=== PATIENT | female | born 2000 | race Caucasian/White ===

== ENCOUNTER 2020-01-18 10:48 | Outpatient (REF) | payer MEDICAID, SELFPAY | END 2020-01-18 10:49 | disposition home or self-care (01) | LOC: HO.LAB 10:48 | PROVIDERS: Visit Provider Internal Medicine | DX: Z20.828 Contact with and (suspected) exposure to other viral communicable diseases (principal) | CPT/HCPCS: C9803; U0003 ==

== ENCOUNTER 2020-01-30 15:35 | Outpatient (REF) | payer MEDICAID, SELFPAY | END 2020-01-30 15:36 | disposition home or self-care (01) | LOC: HO.LAB 15:35 | PROVIDERS: Visit Provider Internal Medicine | DX: Z20.828 Contact with and (suspected) exposure to other viral communicable diseases (principal) | CPT/HCPCS: C9803; U0003 ==

== ENCOUNTER 2021-11-06 11:01 | Emergency (ER) | payer MEDICAID, SELFPAY ==
--- NOTE | ~2021-11-06 | CT_ITS ---
EXAMINATION: CT abdomen pelvis w con CLINICAL INFORMATION: Reason for Exam pt c let upper/lower quadrant abd pain COMPARISON: No prior CT available for comparison. TECHNIQUE: Multidetector volumetric imaging was performed from the superior aspect of the liver through the pubic symphysis , approximately 85 mL of Omnipaque 350 injected Sagittal and coronal reformatted images were obtained on the technologist's workstation. This CT examination was performed using dose optimization techniques as appropriate, variously including the following: *Automated exposure control *Adjustment of mA and/or kV according to patient size (this includes techniques or standardized protocols for targeted exams where dose is matched to indication/reason for exam; i.e. extremities or head) *Use of iterative reconstruction technique DLP: 554 mGy-cm FINDINGS: LOWER THORAX: Included lung bases are clear. HEPATOBILIARY: No focal hepatic lesions. No biliary ductal dilatation. GALLBLADDER: Has been removed. SPLEEN: Spleen is normal in size. PANCREAS: No focal mass or ductal dilatation. STOMACH AND GASTROINTESTINAL TRACT: Stomach is grossly unremarkable. There is no bowel distention or thickening. No CT evidence of appendicitis. ADRENALS: No adrenal nodules. KIDNEYS/URETERS: No hydronephrosis, stones or solid mass lesions. URINARY BLADDER: Partially decompressed. PELVIC VISCERA: Uterus and ovaries are prominent, normal for patient's young age. PERITONEUM: No free air or fluid. LYMPH NODES: No lymphadenopathy. VASCULAR:Abdominal aorta normal in size, no aneurysm found. BONES, ABDOMINAL WALL AND SOFT TISSUES: Age-appropriate changes of the spine and skeletal system, no destructive osteolytic or osteosclerotic bone lesion found CT/CT abdomen pelvis w con IMPRESSION: *No CT findings to explain patient's pain symptoms. No kidney stone or hydronephrosis. No diverticulitis. Gallbladder been removed. *Uterus and ovaries are prominent, normal for patient's young age.
[2021-11-06 11:03] VITALS: BP 113/52; PULSE 68; RESP 16; TEMP 35; O2SAT 99; BMI 31.8
--- NOTE | 2021-11-06 11:34 | ED_ITS ---
HPI - URI/Sore Throat General Chief Complaint: Upper Respiratory Symptoms Stated Complaint: Sore throat/Stuffy nose Time Seen by Provider: 11/06/21 11:24 Source: patient Mode of arrival: ambulatory Limitations: no limitations History of Present Illness HPI Narrative: 21-year-old female with a past medical history of cholelithiasis status post cholecystectomy in 2021 presenting to the ER with complaints of chills, fatigue, malaise, ear pain, nasal congestion/rhinorrhea, sore throat, dry cough with abdominal pain and dysuria. Denies recent travel or sick contacts, measured fevers, dizziness, headaches, neck pain/stiffness, trouble swallowing or breathing, loss of taste or smell, recent oral intercourse, thoughts of STDs, nausea/vomiting, sputum production, back pain, hematuria, abnormal vaginal discharge, rashes or lesions, lower extremity edema or calf tenderness, others with similar symptoms or any other symptoms complaints or concerns at this time. MD elicited complaint: sore throat, rhinorrhea and nasal congestion Onset (ago): week(s) (1) Consistency: constant Severity: moderate Description of mucous: clear and yellow Able to tolerate fluids by mouth: Yes Exacerbating factors: swallowing Relieving factors: nothing Associated symptoms: chills, myalgias, rhinorrhea, nasal congestion, sore throat, cough, abdominal pain and dysuria Treatments prior to arrival: none Related Data Previous Rx's Medication Instructions Recorded cefuroxime axetil 250 mg tablet 250 mg PO BID Upper respiratory 11/06/21 infection/UTI 7 days #14 tabs Allergies Allergy/AdvReac Type Severity Reaction Status Date / Time amoxicillin [AMOXICILLIN] Allergy Unknown RASH Unverified 11/28/19 17:23 vancomycin [VANCOMYCIN] Allergy Unknown HIVES, Unverified 11/28/19 17:23 itchy and swollen Review of Systems Review of Systems: Constitutional : + chills/fatigue/malaise, No Fever, No Night Sweats, No Weight loss ENT/Mouth : + sore throat/nasal congestion/rhinorrhea/ear pain, No Hearing loss, No Sinus Pain, No Hoarseness, No Swallowing Difficulty Eyes: No Eye Pain, No Swelling, No Redness, No Foreign Body, No Discharge, No Vision Changes Cardiovascular : No Chest Pain, No SOB, No Dyspnea on Exertion, No Orthopnea, No Edema, No Palpitations Respiratory : + Cough, No Sputum, No Wheezing, No Smoke Exposure, No Dyspnea Gastrointestinal : No Nausea, No Vomiting, No Diarrhea, No Constipation, + abdominal Pain, No Hematochezia, No Melena Genitourinary : no irregular bleeding, + Dysuria, No Urinary Frequency, No Hematuria, No Urinary Incontinence, No Urgency, No Flank Pain, No Urinary Flow Changes, No Hesitancy Musculoskeletal : No joint pain, + Myalgias, No Joint Swelling Skin : No Skin Lesions, No rash Neuro : No Weakness, No Numbness, No Paresthesias, No Loss of Consciousness, No Dizziness, No Headache Psych : No Anxiety/Panic, No Depression, No SI/HI/AH/VH, No Social Issues, Heme/Lymph: No Bruising, No Bleeding,No Lymphadenopathy Endocrine : No Polyuria, No Polydipsia, No Temperature Intolerance Yes all other systems are reviewed and are negative [facility] Past Medical History Attestation statement: The following information was validated with the patient. Source: old records reviewed and nursing notes reviewed Social History Social History Advance Directives: No Advance Directives Information Provided: Yes Advance Directives on File: No Physical Exam Vital Signs: Vital Signs: Last Vital Signs Temp 95.0 F L 11/06/21 11:03 Pulse 68 11/06/21 11:03 Resp 16 11/06/21 11:03 BP 113/52 L 11/06/21 11:03 Pulse Ox 99 11/06/21 11:03 O2 Del Method 11/06/21 11:03 BMI result Body Mass Index 31.8 vital signs have been reviewed as normal and appeared to be correct. Blood pressure normal. Heart rate normal. Respiration rate normal. Temperature normal. Oxygen saturation normal. Appearance: Alert. Oriented X3. No acute distress. Head: Normal external exam. Normocephalic. Atraumatic. Eyes: PERRLA. EOMI. Conjunctiva and sclera normal. Eyelids normal. ENT: EAC normal. TM's Normal. Pharynx normal. Uvula midline. Moist mucous membranes. No lesions/ulcerations or masses noted on the tongue. Normal voice. No trismus noted. No drooling noted. No muffled voice noted. Neck: Normal inspection. Neck supple. FROM. No adenopathy. Thyroid Normal. No tracheal deviation noted. No crepitus is noted. No meningeal signs. No neck mass noted. No signs of trauma noted. CVS: Normal heart rate and rhythm. Heart sound normal. Pulses normal throughout. No murmurs/rales/gallops. Respiratory: No respiratory distress. Painless inspiration. Breath sounds normal. No wheezes/rales/rhonchi noted. Chest nontender. No crepitus is noted. No signs of trauma noted. No accessory muscle usage noted or decreased air mo vement noted. No signs of trauma. Abdomen: Soft and mild tenderness to left upper quadrant/left lower quadrant with guarding. Nondistended. No rigidity. Bowel sounds normal in all 4 quadrants. No distention noted. No organomegaly noted. No visible injury noted. No rebound tenderness. Negative Rovsing sign. Negative obturator's sign. Negative psoas sign. Negative Gaitan sign. Back: No CVA tenderness. Full range of motion noted. Nontender. No signs of trauma. Patient neuro intact bilaterally and distally on all 4 extremities. Patient's reflexes intact bilaterally and distally on all 4 extremities. No rashes/lesion/induration/fluctuance or signs of infection noted. Skin: Skin warm and dry. Normal skin color. Normal skin turgor. No rashes/lesions/lacerations noted. Extremities: Extremities exhibit normal range of motion and nontender. Neuro: Oriented X 3. No motor deficit. No sensory deficit. Reflexes normal. Normal steady gait. No focal neuro deficits noted. CN's II-XII intact bilaterally? Vascular: + radial pulses/+ 2 distal pedal pulses/+2 dorsalis pedis b/l. Normal cap refill. No cyanosis noted to upper extremity nails and lower extremity toes nails. Course Course Course Narrative: 11am - 21-year-old female with a past medical history of cholelithiasis status post cholecystectomy in 2021 presenting to the ER with complaints of chills, fatigue, malaise, ear pain, nasal congestion/rhinorrhea, sore throat, dry cough with abdominal pain and dysuria. Plan: Labs, COVID swab, strep swab, assess for mono, UA, UHCG, gonorrhea chlamydia urine, CT scan abdomen pelvis with IV contrast. Provide some fluids and re-evaluate. Reevaluation(s) Reevaluation #1: - labs return patient with mild anemia with an H&H of 10.6/32.1 this is similar compared to prior. Otherwise all other labs are within normal limits. Serum quant negative for . Patient positive for leukocytes therefore will treat for UTI despite negative nitrates due to patient reporting dysuria. Patient negative for mono/influenza/COVID. - awaiting CT scan abdomen pelvis will re-evaluate. Time: 12:56 Reevaluation #2: - CT scan abdomen pelvis negative for any acute processes. Therefore at this time will DC home antibiotics for UTI instructions return if any new or worsening symptoms to follow up with primary care provider. Patient understands agrees with this plan. Time: 14:[address] [facility] - URI/Sore Throat Medical Records Attestation: I reviewed the patient's medical records. Lab Data Attestation: I reviewed the patient's lab results. Result diagrams: 11/06/21 12:21 11/06/21 12:21 Labs: Lab Results 11/06/21 11/06/21 11/06/21 Range/Units 11:12 11:12 12:12 WBC (4.8-10.8) X10*3/uL RBC (4.20-5.50) X10*6/uL Hgb (12.0-16.0) g/dl Hct (37.0-47.0) % MCV (80.0-98.0) fL MCH (27.0-33.0) pg MCHC (31.0-35.0) g/dl RDW (11.0-16.0) % Plt Count (160-400) X10*3/uL MPV (9.4-12.3) fL Immature Gran % (Auto) (0.0-0.4) % Neut % (Auto) (45-73) % Lymph % (Auto) (20-40) % [place] % (Auto) (2-11) % Eos % (Auto) (0-4) % Baso % (Auto) (0-2) % Lymph # (Auto) (1.2-4.9) X10*3/uL [place] # (Auto) (0.1-1.2) X10*3/uL Eos # (Auto) (0.0-0.4) X10*3/uL Baso # (Auto) (0.0-0.2) X10*3/uL Abs Immat Gran (auto) (0.00-0.03) X10*3/uL Absolute Neuts (auto) (2.0-8.3) x10*3/uL Absolute Nucleated RBC (0.0-0.012) X10*3/uL Nucleated RBC % (auto) (0.0-0.2) /100WBC PT (10.0-13.1) SEC INR (0.9-1.1) Sodium (135-145) mmol/L Potassium (3.3-5.1) mmol/L Chloride (96-108) mmol/L Carbon Dioxide (22-29) mmol/L Anion Gap (12-20) BUN (9-16) mg/dL Creatinine (0.5-1.4) mg/dL Estim Creat Clear Calc Estimated GFR Random Glucose (60-115) mg/dL Calcium (8.4-10.2) mg/dL Magnesium (1.6-2.6) mg/dL Total Bilirubin (0.0-1.0) mg/dL AST (5-31) U/L ALT (0-31) U/L Alkaline Phosphatase (39-117) U/L Lactate Dehydrogenase (122-220) U/L Total Protein (6.5-8.0) g/dL Albumin (3.5-5.0) g/dL Amylase (28-100) U/L Lipase (8-78) U/L Beta HCG, Quant mIU/mL Urine Color Urine Appearance Urine pH (5.0-8.0) Ur Specific [place] (1.005-1.025) Urine Protein (Neg-Trace) mg/dL Urine Glucose (UA) (Negative) mg/dL Urine Ketones (Negative) mg/dL Urine Blood (Negative) Urine Nitrite (Negative) Ur Leukocyte Esterase (Negative) Urine RBC (0-2) /HPF Urine WBC (0-5) /HPF Ur Squamous Epith Cells (0-2) /HPF Urine Bacteria (None Seen) Hyaline Casts (0-2) /LPF COVID-19 (ROSARIO) Negative (Negative) COVID-19 Clin Com See Note Monoscreen (Negative) Influenza Type A (HOMA) Negative (Negative) Influenza Type B (HOMA) Negative (Negative) Influenza A & B Note See Note S. pyogenes GrpA HOMA Negative (Negative) 11/06/21 11/06/21 11/06/21 Range/Units 12:21 12:21 12:21 WBC 7.9 (4.8-10.8) X10*3/uL RBC 3.90 L (4.20-5.50) X10*6/uL Hgb 10.6 L (12.0-16.0) g/dl Hct 32.1 L (37.0-47.0) % MCV 82.3 (80.0-98.0) fL MCH 27.2 (27.0-33.0) pg MCHC 33.0 (31.0-35.0) g/dl RDW 13.5 (11.0-16.0) % Plt Count 347 (160-400) X10*3/uL MPV 9.1 L (9.4-12.3) fL Immature Gran % (Auto) 0.4 (0.0-0.4) % Neut % (Auto) 67.4 (45-73) % Lymph % (Auto) 23.1 (20-40) % [place] % (Auto) 7.3 (2-11) % Eos % (Auto) 1.3 (0-4) % Baso % (Auto) 0.5 (0-2) % Lymph # (Auto) 1.8 (1.2-4.9) X10*3/uL [place] # (Auto) 0.6 (0.1-1.2) X10*3/uL Eos # (Auto) 0.1 (0.0-0.4) X10*3/uL Baso # (Auto) 0.0 (0.0-0.2) X10*3/uL Abs Immat Gran (auto) 0.03 (0.00-0.03) X10*3/uL Absolute Neuts (auto) 5.4 (2.0-8.3) x10*3/uL Absolute Nucleated RBC 0.000 (0.0-0.012) X10*3/uL Nucleated RBC % (auto) 0.0 (0.0-0.2) /100WBC PT 11.4 (10.0-13.1) SEC INR 1.0 (0.9-1.1) Sodium 143 (135-145) mmol/L Potassium 4.1 (3.3-5.1) mmol/L Chloride 107 (96-108) mmol/L Carbon Dioxide 28 (22-29) mmol/L Anion Gap 12 (12-20) BUN 12 (9-16) mg/dL Creatinine 0.69 (0.5-1.4) mg/dL Estim Creat Clear Calc 125.5 Estimated GFR > 60 Random Glucose 100 (60-115) mg/dL Calcium 8.5 (8.4-10.2) mg/dL Magnesium 2.1 (1.6-2.6) mg/dL Total Bilirubin 0.2 (0.0-1.0) mg/dL AST 21 (5-31) U/L ALT 25 (0-31) U/L Alkaline Phosphatase 63 (39-117) U/L Lactate Dehydrogenase 171 (122-220) U/L Total Protein 6.8 (6.5-8.0) g/dL Albumin 3.8 (3.5-5.0) g/dL Amylase 30 (28-100) U/L Lipase 22 (8-78) U/L Beta HCG, Quant < 2 mIU/mL Urine Color Urine Appearance Urine pH (5.0-8.0) Ur Specific [place] (1.005-1.025) Urine Protein (Neg-Trace) mg/dL Urine Glucose (UA) (Negative) mg/dL Urine Ketones (Negative) mg/dL Urine Blood (Negative) Urine Nitrite (Negative) Ur Leukocyte Esterase (Negative) Urine RBC (0-2) /HPF Urine WBC (0-5) /HPF Ur Squamous Epith Cells (0-2) /HPF Urine Bacteria (None Seen) Hyaline Casts (0-2) /LPF COVID-19 ([facility]ARIO) (Negative) COVID-19 Clin Com Monoscreen (Negative) Influenza Type A (HOMA) (Negative) Influenza Type B (HOMA) (Negative) Influenza A & B Note S. pyogenes GrpA HOMA (Negative) 11/06/21 11/06/21 Range/Units 12:21 12:35 WBC (4.8-10.8) X10*3/uL RBC (4.20-5.50) X10*6/uL Hgb (12.0-16.0) g/dl Hct (37.0-47.0) % MCV (80.0-98.0) fL MCH (27.0-33.0) pg MCHC (31.0-35.0) g/dl RDW (11.0-16.0) % Plt Count (160-400) X10*3/uL MPV (9.4-12.3) fL Immature Gran % (Auto) (0.0-0.4) % Neut % (Auto) (45-73) % Lymph % (Auto) (20-40) % [place] % (Auto) (2-11) % Eos % (Auto) (0-4) % Baso % (Auto) (0-2) % Lymph # (Auto) (1.2-4.9) X10*3/uL [place] # (Auto) (0.1-1.2) X10*3/uL Eos # (Auto) (0.0-0.4) X10*3/uL Baso # (Auto) (0.0-0.2) X10*3/uL Abs Immat Gran (auto) (0.00-0.03) X10*3/uL Absolute Neuts (auto) (2.0-8.3) x10*3/uL Absolute Nucleated RBC (0.0-0.012) X10*3/uL Nucleated RBC % (auto) (0.0-0.2) /100WBC PT (10.0-13.1) SEC INR (0.9-1.1) Sodium (135-145) mmol/L Potassium (3.3-5.1) mmol/L Chloride (96-108) mmol/L Carbon Dioxide (22-29) mmol/L Anion Gap (12-20) BUN (9-16) mg/dL Creatinine (0.5-1.4) mg/dL Estim Creat Clear Calc Estimated GFR Random Glucose (60-115) mg/dL Calcium (8.4-10.2) mg/dL Magnesium (1.6-2.6) mg/dL Total Bilirubin (0.0-1.0) mg/dL AST (5-31) U/L ALT (0-31) U/L Alkaline Phosphatase (39-117) U/L Lactate Dehydrogenase (122-220) U/L Total Protein (6.5-8.0) g/dL Albumin (3.5-5.0) g/dL Amylase (28-100) U/L Lipase (8-78) U/L Beta HCG, Quant mIU/mL Urine Color Yellow Urine Appearance Clear Urine pH 6.5 (5.0-8.0) Ur Specific [place] 1.020 (1.005-1.025) Urine Protein Negative (Neg-Trace) mg/dL Urine Glucose (UA) Negative (Negative) mg/dL Urine Ketones Negative (Negative) mg/dL Urine Blood Negative (Negative) Urine Nitrite Negative (Negative) Ur Leukocyte Esterase Small (1+) H (Negative) Urine RBC 0-2 (0-2) /HPF Urine WBC 0-5 (0-5) /HPF Ur Squamous Epith Cells 0-2 (0-2) /HPF Urine Bacteria None Seen (None Seen) Hyaline Casts 0-2 (0-2) /LPF COVID-19 (ROSARIO) (Negative) COVID-19 Clin Com Monoscreen Negative (Negative) Influenza Type A (HOMA) (Negative) Influenza Type B (HOMA) (Negative) Influenza A & B Note S. pyogenes GrpA HOMA (Negative) Imaging Data CT scan abdomen pelvis with IV contrast: Attestation: I personally reviewed and interpreted this imaging study as follows: Radiologist's impression: FINDINGS: LOWER THORAX: Included lung bases are clear. HEPATOBILIARY: No focal hepatic lesions. No biliary ductal dilatation. GALLBLADDER: Has been removed. SPLEEN: Spleen is normal in size. PANCREAS: No focal mass or ductal dilatation. STOMACH AND GASTROINTESTINAL TRACT: Stomach is grossly unremarkable. There is no bowel distention or thickening. No CT evidence of appendicitis. ADRENALS: No adrenal nodules. KIDNEYS/URETERS: No hydronephrosis, stones or solid mass lesions. URINARY BLADDER: Partially decompressed. PELVIC VISCERA: Uterus and ovaries are prominent, normal for patient's young age. PERITONEUM: No free air or fluid. LYMPH NODES: No lymphadenopathy. VASCULAR:Abdominal aorta normal in size, no aneurysm found. BONES, ABDOMINAL WALL AND SOFT TISSUES: Age-appropriate changes of the spine and skeletal system, no destructive osteolytic or osteosclerotic bone lesion found CT/CT abdomen pelvis w con IMPRESSION: *No CT findings to explain patient's pain symptoms. No kidney stone or hydronephrosis. No diverticulitis. Gallbladder been removed. ? *Uterus and ovaries are prominent, normal for patient's young age. Discharge Plan Discharge Clinical Impression: Upper respiratory infection, UTI (urinary tract infection), Abdominal pain, Anemia Patient Disposition: Home, Self-Care Instructions: Urinary Tract Infection in Women (ED), Upper Respiratory Infection (ED), Abdominal Pain (ED), Anemia (ED) Additional Instructions: You have pending lab results if any are positive you will be contacted within 5- 7 days or you can find them on the patient portal before we call you most the time. Return if any new or worsening symptoms and follow-up with her primary care provider. Prescriptions: New cefuroxime axetil 250 mg tablet 250 mg PO BID 7 Days Qty: 14 0RF Referrals: Pamela Handley NP [Primary Care Provider] - 2 days Stand Alone Forms: Work/School Release Print Language: Romanian
[2021-11-06 11:48] LABS: COVID-19 Test Negative (Negative); IDNOW Serial# 16C4AD1C
[2021-11-06 11:49] LABS: Influenza A Negative (Negative); Influenza B2 Negative (Negative)
[2021-11-06 12:26] LABS: MANUAL DIFF FLAG NO
[2021-11-06 12:27] LABS: Basophils Percent Auto 0.5 % (0-2); Eosinophils Absolute Auto 0.1 X10*3/uL (0.0-0.4); Eosinophils Percent Auto 1.3 % (0-4); Hematocrit 32.1 % (37.0-47.0); Hemoglobin 10.6 g/dl (12.0-16.0); Imm Gran Abs Auto 0.03 X10*3/uL (0.00-0.03); Imm Gran Pct Auto 0.4 % (0.0-0.4); Lymphocytes Absolute Auto 1.8 X10*3/uL (1.2-4.9); Lymphocytes Percent Auto 23.1 % (20-40); Mean Corpuscular Hemoglobin 27.2 pg (27.0-33.0); Mean Corpuscular Volume 82.3 fL (80.0-98.0); Mean Platelet Volume 9.1 fL (9.4-12.3); Monocytes Absolute Auto 0.6 X10*3/uL (0.1-1.2); Monocytes Percent Auto 7.3 % (2-11); Neutrophils Absolute Auto 5.4 x10*3/uL (2.0-8.3); Neutrophils Percent Auto 67.4 % (45-73); Platelet Count 347 X10*3/uL (160-400); Red Cell Distribution Width 13.5 % (11.0-16.0); White Blood Count 7.9 X10*3/uL (4.8-10.8)
[2021-11-06 12:33] LABS: Prothrombin Time 11.4 SEC (10.0-13.1)
[2021-11-06] MEDS: 0.9 % Sodium Chloride 1,000 ML 999 ML IVCONT (12:34)
[2021-11-06 12:45] LABS: Alanine Aminotransferase 25 U/L (0-31); Albumin Level 3.8 g/dL (3.5-5.0); Alkaline Phosphatase 63 U/L (39-117); Amylase 30 U/L (28-100); Anion Gap 12 (12-20); Aspartate Amino Transferase 21 U/L (5-31); Bilirubin Total 0.2 mg/dL (0.0-1.0); Blood Urea Nitrogen 12 mg/dL (9-16); Calcium 8.5 mg/dL (8.4-10.2); Carbon Dioxide 28 mmol/L (22-29); Chloride 107 mmol/L (96-108); Creatinine Clr Calc Pharmacy 125.5; Estimated Glomerular Filt Rate > 60; Glucose Random 100 mg/dL (60-115); Lactate Dehydrogenase 171 U/L (122-220); Lipase 22 U/L (8-78); Magnesium 2.1 mg/dL (1.6-2.6); Potassium 4.1 mmol/L (3.3-5.1); Sodium 143 mmol/L (135-145); Total Protein 6.8 g/dL (6.5-8.0)
[2021-11-06 12:49] LABS: Monotest Negative (Negative)
[2021-11-06 12:51] LABS: HCG Quantitative < 2 mIU/mL
[2021-11-06 12:52] LABS: Appearance Urine Clear; Color Urine Yellow; Glucose Urine UA Negative (Negative); Leukocyte Esterase Urine Small (1+) (Negative); Nitrite Urine Negative (Negative); PH 6.5 (5.0-8.0); Urine Blood Negative (Negative); Urine Ketones Negative (Negative); Urine Protein Negative (Neg-Trace)
[2021-11-06 12:57] LABS: IDNOW Serial# 08D9AD1C; Strep A Nucleic Acid Negative (Negative)
[2021-11-06 13:06] LABS: Bacteria Urine None Seen (None Seen); Hyaline Casts Urine 0-2 /LPF (0-2); RBC Urine 0-2 /HPF (0-2); Squamous Epithelial Cell Urine 0-2 /HPF (0-2); UACC Culture Trigger YES; WBC Urine 0-5 /HPF (0-5)
[2021-11-06] MEDS: iohexoL 350 MG/ML 100 ML INFUS..BTL IV (13:17)
[2021-11-07 11:59] LABS: CT PCR NOT DETECTED (Not Detect.); NG PCR NOT DETECTED (Not Detect.)
== END 2021-11-06 14:31 | disposition home or self-care (01) ==
PROVIDERS: Physician Assistant Medical; Emergency Provider Emergency Medicine; PCP Registered Nurse Community Health
DX: J06.9 Acute upper respiratory infection, unspecified (principal); N39.0 Urinary tract infection, site not specified; R10.9 Unspecified abdominal pain; D64.9 Anemia, unspecified; Z20.822 Contact with and (suspected) exposure to COVID-19; J02.9 Acute pharyngitis, unspecified
CPT/HCPCS: 36415; 74177; 80053; 81001; 82150; 83615; 83690; 83735; 84702; 85025; 85610; 86308; 87086; 87491; 87502; 87591; 87635; 87651; 96360; 99284; Q9967

== ENCOUNTER 2022-02-14 14:40 | Emergency (ER) | payer MEDICAID, SELFPAY | END 2022-02-14 19:54 | disposition left against medical advice (07) | PROVIDERS: Emergency Provider Emergency Medicine | DX: M79.645 Pain in left finger(s) (principal) ==

== ENCOUNTER 2022-02-15 08:56 | Emergency (ER) | payer MEDICAID, SELFPAY ==
[2022-02-15 08:59] VITALS: BP 105/61; PULSE 70; RESP 14; TEMP 36.3; O2SAT 99; BMI 31.1
--- NOTE | 2022-02-15 11:19 | ED_ITS ---
HPI - Extremity Problem General Chief complaint: Extremity Injury, Upper Stated complaint: Pinky inj Time Seen by Provider: 02/15/22 10:42 Source: patient Mode of arrival: ambulatory Limitations: no limitations History of Present Illness HPI Narrative: Patient is a 21-year-old female who presents to the emergency department for evaluation of left 5th digit pain. She reports 1 week ago she jammed it into a metal door frame. The finger was initially painful afterwards but denies any swelling or deformities. Denies any bruising. At this time, she states that she still present, localized to the ulnar aspect of PIP, full flexion and extension present. Related Data Previous Rx's Medication Instructions Recorded cefuroxime axetil 250 mg tablet 250 mg PO BID Upper respiratory 11/06/21 infection/UTI 7 days #14 tabs Allergies Allergy/AdvReac Type Severity Reaction Status Date / Time amoxicillin [AMOXICILLIN] Allergy Unknown RASH Unverified 11/28/19 17:23 vancomycin [VANCOMYCIN] Allergy Unknown HIVES, Unverified 11/28/19 17:23 itchy and swollen Review of Systems Review of Systems: Musculoskeletal: Positive finger pain as noted in HPI Yes all other systems are reviewed and are negative [facility] Past Medical History Attestation statement: The following information was validated with the patient. Source: old records reviewed Social History Social History Advance Directives: No Advance Directives Information Provided: No Physical Exam Vital Signs: Vital Signs: Last Vital Signs Temp 97.4 F 02/15/22 08:59 Pulse 70 02/15/22 08:59 Resp 14 02/15/22 08:59 BP 105/61 02/15/22 08:59 Pulse Ox 99 02/15/22 08:59 O2 Del Method 02/15/22 08:59 BMI result Body Mass Index 31.1 Appearance: Alert.?Oriented to person, place and time. No acute distress.?Normal affect. Neck: Normal inspection.? Neck supple.?? CVS: Heart sounds normal. Normal heart rate and rhythm.? Pulses normal.?? Respiratory: No respiratory distress.? Lung sounds clear to auscultation bilaterally?? Abdomen: Soft and non-tender. ? Skin: Skin warm and dry.? Normal skin color.? Extremities: Left hand /wrist without acute deformity. Fifth digit with full range of motion extension/flexion. No swelling, erythema, warmth Neuro: Moves all extremities spontaneously. Sensation intact bilaterally. Ambulates with normal steady gait. Medical Decision Making Medical Decision Making MDM Narrative: Patient is a 21-year-old female with no pertinent past medical history presenting to emergency department for evaluation of traumatic left 5th digit pain. No obvious deformity upon examination. Full range of motion with flexion and extension are present. Palpable tenderness to the ulnar aspect of PIP. No erythema, warmth, fevers or chills to suggest septic arthritis. Low suspicion for fracture, discussed option for x-ray with patient, used shared decision making and not performed at this time. Symptoms seem most consistent with a sprain of the phalanx at this time. Advised rest, ice, acetaminophen/ibuprofen as needed, outpatient follow-up with primary care provider as needed. Discharged in stable condition. Differential Diagnoses: Differential diagnosis Differential Diagnosis: The differential diagnosis associated with the patient?s presentation includes: Fracture, sprain, septic arthritis Tests considered but not performed: Tests Considered But Not Performed (Hand x- ray) The following testing was considered but ultimately not selected after discussion with patient/family. Discharge Plan Discharge Clinical Impression: Finger sprain Patient Disposition: Home, Self-Care Instructions: Jammed Finger (ED), Finger Sprain (ED) Additional Instructions: Apply ice for 10-15 minutes 3-4 times daily, alternate between Tylenol and ibuprofen as needed for pain. Follow-up with your primary care provider as needed. Prescriptions: No Action cefuroxime axetil 250 mg tablet 250 mg PO BID 7 Days Qty: 14 0RF Referrals: [facility] [Primary Care Provider] -
== END 2022-02-15 11:33 | disposition home or self-care (01) ==
PROVIDERS: Emergency Provider Emergency Medicine
DX: S63.617A Unspecified sprain of left little finger, initial encounter (principal); M79.645 Pain in left finger(s); Y29.XXXA Contact with blunt object, undetermined intent, initial encounter; Y93.9 Activity, unspecified; Y92.9 Unspecified place or not applicable; Y99.9 Unspecified external cause status
CPT/HCPCS: 99282

== ENCOUNTER 2023-01-03 18:44 | Emergency (ER) | payer MEDICAID, SELFPAY ==
--- NOTE | ~2023-01-03 | US_ITS ---
EXAMINATION: US PELVIS CLINICAL INFORMATION: Pelvic pain; the last menstrual period is not specified. COMPARISON: Pelvic ultrasound dated 05/11/2017. TECHNIQUE: Ultrasound of the pelvis is performed using both transabdominal and transvaginal transducers along with Doppler. Transvaginal imaging is performed due to inadequate visualization transabdominally. FINDINGS: Uterus: The uterus is anteverted and retroflexed. The uterus measures 9.6 x 3.5 x 4.3 cm. Nabothian cysts are seen within the cervix. The double wall endometrial thickness is 7 mm. The uterus is smooth in contour and has normal myometrial echogenicity. No visible fibroid. Adnexa: Both ovaries are visualized. There is normal color flow to the adnexa. There is no ovarian torsion. There is no pelvic ascites or fluid collection. Right ovary measures 4.4 x 2.2 x 3.2 cm, volume 16.2 mL. There are small physiologic follicles. Left ovary measures 3.6 x 1.6 x 1.8 cm, volume 4.5 mL. There are small physiologic follicles. US/US pelvic and transvaginal IMPRESSION: Nabothian cysts are seen within the cervix. The examination is otherwise unremarkable.
[2023-01-03 19:12] VITALS: BP 110/49; PULSE 58; RESP 20; TEMP 36.5; O2SAT 99; BMI 29.3
--- NOTE | 2023-01-03 19:13 | ED.ABDPAIN ---
HPI - Abdominal Pain General Chief Complaint: Abdominal Pain Stated Complaint: abd pain ? Time Seen by Provider: 01/04/23 00:22 Source: patient Mode of arrival: ambulatory Limitations: no limitations History of Present Illness HPI narrative: Patient is a 22-year-old female presenting to emergency department for evaluation of intermittent left lower quadrant abdominal pain over the past 5 months. She states that the pain is typically intermittent lasting a few minutes at a time and then self resolves. She developed the same type of pain yesterday and it remained constant and today described as a pressure sensation with associated nausea and no vomiting which prompted her to come to the emergency department today. She denies fevers, chills, chest pain, shortness of breath, upper abdominal pain, vomiting, food intolerance, diarrhea, constipation, hematochezia, melena, urinary frequency/urgency/hesitancy, dysuria, hematuria, abnormal vaginal discharge, abnormal vaginal bleeding, dyspareunia, concern for sexually transmitted infections. No associated trauma. Has not had prior workup for this pain by her account. She has an appoint with her primary care provider next week. Related Data Previous Rx's Medication Instructions Recorded cefuroxime axetil 250 mg tablet 250 mg PO BID Upper respiratory 11/06/21 infection/UTI 7 days #14 tabs Allergies Allergy/AdvReac Type Severity Reaction Status Date / Time amoxicillin [AMOXICILLIN] Allergy Unknown RASH Unverified 11/28/19 17:23 vancomycin [VANCOMYCIN] Allergy Unknown HIVES, Unverified 11/28/19 17:23 itchy and swollen Review of Systems Review of Systems Yes all other systems are reviewed and are negative PMFSH Past Medical History Attestation statement: The following information was validated with the patient. Source: old records reviewed Social History Social History Advance Directives: No Advance Directives Information Provided: No Physical Exam ED Vital Signs: Vital Signs - 24 hr 01/03/23 19:12 Temperature 97.7 F Pulse Rate 58 Respiratory Rate 20 Blood Pressure 110/49 L Pulse Oximetry 99 Oxygen Delivery Method Room Air BMI result Body Mass Index 29.3 Appearance: Alert.?Oriented to person, place and time. No acute distress.?Normal affect. Eyes: Pupils equal, round and reactive to light.? ENT: Pharynx normal.?? Neck: Normal inspection.? Neck supple.?? CVS: Heart sounds normal. Normal heart rate and rhythm.? Pulses normal.?? Respiratory: No respiratory distress.? Lung sounds clear to auscultation bilaterally?? Abdomen: Soft and non-tender. No rigidity. No guarding. Normoactive bowel sounds. Skin: Skin warm and dry.? Normal skin color.? ? Extremities: No lower extremity edema.? Neuro: Moves all extremities spontaneously. Sensation intact bilaterally. No focal neuro deficits. Ambulates with normal steady gait. Course Course Course Narrative: This is a rapid medical exam. deferred additional HPI, ROS, PE to primary provider. 22 yo female with no known medical history here with complaints of intermittent LLQ abdominal pain x 5 months, finished cycle 3 days ago. No urinary symptoms, vomiting diarrhea, fevers, chills vaginal discharge. Will obtain labs, UA, pelvic US. VSS Medical Decision Making Medical Decision Making MDM Narrative: Patient is a 22-year-old female with no reported past medical history presenting to emergency department for evaluation of lower abdominal pain as per HPI. At the time of my examination she is overall well-appearing, nontoxic, afebrile. Vital signs stable. Without fever, tachycardia. Abdominal examination is benign, no tenderness upon palpation, no rigidity, no guarding. She reports near complete resolution of pain at the time of my examination. She had labs obtained from rapid medical examination, CBC is without leukocytosis, she has a normocytic anemia not needing transfusion criteria. CMP is overall unremarkable. Lipase is within normal limits. Urinalysis without evidence of infection or microscopic hematuria. HCG testing is negative. A pelvic ultrasound was obtained which reveals nabothian cysts within the cervix, otherwise unremarkable examination. Discussed these findings with patient, do not suspect that the sits side the etiology for her pain at this time. Clinically I have a low suspicion for diverticulitis, colitis, bowel obstruction, obstructive uropathy, hydronephrosis, pyelonephritis, deferred CT imaging at this time. We discussed possible muscular strain as etiology for persistent pain over the past 2 days. Advised rest, ice/heat, use of acetaminophen/ibuprofen, and outpatient follow-up with her primary care provider. Discussed worrisome signs and symptoms that would warrant re-evaluation emergency department. All questions answered. At this time she is stable for discharge. Differential Diagnosis Differential Diagnoses: The differential diagnosis associated with the presentation includes (As noted above) Admission/Observation Consideration of admission/observation: Escalation of care including admission/observation considered (Considered admission for abdominal pain, see narrative above for further details) Lab Data MDM Lab Attestation statement: I reviewed the patient's lab results. (As per narrative above) 01/03/23 19:33 01/03/23 19:33 Labs: Lab Results 01/03/23 Range/Units 19:33 WBC 6.6 (4.8-10.8) X10*3/uL RBC 4.14 L (4.20-5.50) X10*6/uL Hgb 11.3 L (12.0-16.0) g/dl Hct 34.9 L (37.0-47.0) % MCV 84.3 (80.0-98.0) fL MCH 27.3 (27.0-33.0) pg MCHC 32.4 (31.0-35.0) g/dl RDW 13.8 (11.0-16.0) % Plt Count 391 (160-400) X10*3/uL MPV 9.4 (9.4-12.3) fL Immature Gran % (Auto) 0.2 (0.0-0.4) % Neut % (Auto) 57.2 (45-73) % Lymph % (Auto) 33.9 (20-40) % [place] % (Auto) 7.3 (2-11) % Eos % (Auto) 0.6 (0-4) % Baso % (Auto) 0.8 (0-2) % Lymph # (Auto) 2.2 (1.2-4.9) X10*3/uL [place] # (Auto) 0.5 (0.1-1.2) X10*3/uL Eos # (Auto) 0.0 (0.0-0.4) X10*3/uL Baso # (Auto) 0.1 (0.0-0.2) X10*3/uL Abs Immat Gran (auto) 0.01 (0.00-0.03) X10*3/uL Absolute Neuts (auto) 3.8 (2.0-8.3) x10*3/uL Absolute Nucleated RBC 0.000 (0.0-0.012) X10*3/uL Nucleated RBC % (auto) 0.0 (0.0-0.2) /100WBC Sodium 141 (135-145) mmol/L Potassium 3.7 (3.3-5.1) mmol/L Chloride 109 H (96-108) mmol/L Carbon Dioxide 24 (22-29) mmol/L Anion Gap 12 (12-20) BUN 11 (9-16) mg/dL Creatinine 0.65 (0.5-1.4) mg/dL Estim Creat Clear Calc 126.6 Estimated GFR > 60 Random Glucose 92 (60-115) mg/dL Calcium 9.6 D (8.4-10.2) mg/dL Total Bilirubin 0.2 (0.0-1.0) mg/dL Direct Bilirubin < 0.2 (0.0-0.5) mg/dL AST 14 (5-31) U/L ALT 8 (0-31) U/L Alkaline Phosphatase 55 (39-117) U/L Total Protein 7.7 (6.5-8.0) g/dL Albumin 4.4 (3.5-5.0) g/dL Lipase 21 (8-78) U/L Urine Color Yellow Urine Appearance Clear Urine pH 6.0 (5.0-9.0) Ur Specific [place] 1.025 (1.005-1.025) Urine Protein Negative (Neg-Trace) mg/dL Urine Glucose (UA) Negative (Negative) mg/dL Urine Ketones Negative (Negative) mg/dL Urine Blood Negative (Negative) Urine Nitrite Negative (Negative) Ur Leukocyte Esterase Negative (Negative) Urine Test NEGATIVE (NEGATIVE) Independent Interpretation I performed an independent interpretation of an: Ultrasound Radiology Impression Discussion of test interpretation with radiology: I have reviewed the radiologist's reading. Radiologist Impression: US/US pelvic and transvaginal IMPRESSION: Nabothian cysts are seen within the cervix. The examination is otherwise unremarkable. Tests considered The following testing was considered but not selected: As per narrative above Prescription Management I considered prescription management with: Pain Medication (Acetaminophen/ibuprofen p.r.n.) Discharge Plan Discharge Clinical Impression: Abdominal pain Patient Disposition: Home, Self-Care Instructions: Abdominal Pain (ED) Additional Instructions: Please be sure to stay well hydrated, drink plenty of fluids, eat small frequent meals. Refrain from any heavy lifting or straining. You can take ibuprofen 200 mg, 3 tablets (600mg) every 6-8 hours as needed for pain, in addition to Tylenol 500 mg, 2 tablets (1,000mg) every 4-6 hours as needed for pain, but not to exceed 3 doses daily (3,000mg).? Follow-up with your primary care provider as scheduled. Return back to emergency department any new or worsening symptoms or concerns. Prescriptions: No Action cefuroxime axetil 250 mg tablet 250 mg PO BID 7 Days Qty: 14 0RF Referrals: Belkis Malin FNP [Primary Care Provider] -
[2023-01-03 19:39] LABS: MANUAL DIFF FLAG NO
[2023-01-03 19:42] LABS: Appearance Urine Clear; Color Urine Yellow; Glucose Urine UA Negative (Negative); Leukocyte Esterase Urine Negative (Negative); Nitrite Urine Negative (Negative); Specific Gravity - Urine 1.025 (1.005-1.025); Urine Blood Negative (Negative); Urine Ketones Negative (Negative); Urine Protein Negative (Neg-Trace)
[2023-01-03 19:44] LABS: UPreg QC Valid YES; Urine Pregnancy NEGATIVE (NEGATIVE)
[2023-01-03 19:47] LABS: Basophils Absolute Auto 0.1 X10*3/uL (0.0-0.2); Basophils Percent Auto 0.8 % (0-2); Eosinophils Percent Auto 0.6 % (0-4); Hematocrit 34.9 % (37.0-47.0); Hemoglobin 11.3 g/dl (12.0-16.0); Imm Gran Abs Auto 0.01 X10*3/uL (0.00-0.03); Imm Gran Pct Auto 0.2 % (0.0-0.4); Lymphocytes Absolute Auto 2.2 X10*3/uL (1.2-4.9); Lymphocytes Percent Auto 33.9 % (20-40); Mean Corpuscular HGB Conc 32.4 g/dl (31.0-35.0); Mean Corpuscular Hemoglobin 27.3 pg (27.0-33.0); Mean Corpuscular Volume 84.3 fL (80.0-98.0); Mean Platelet Volume 9.4 fL (9.4-12.3); Monocytes Absolute Auto 0.5 X10*3/uL (0.1-1.2); Monocytes Percent Auto 7.3 % (2-11); Neutrophils Absolute Auto 3.8 x10*3/uL (2.0-8.3); Neutrophils Percent Auto 57.2 % (45-73); Platelet Count 391 X10*3/uL (160-400); Red Blood Count 4.14 X10*6/uL (4.20-5.50); Red Cell Distribution Width 13.8 % (11.0-16.0); White Blood Count 6.6 X10*3/uL (4.8-10.8)
[2023-01-03 19:57] LABS: Alanine Aminotransferase 8 U/L (0-31); Albumin Level 4.4 g/dL (3.5-5.0); Alkaline Phosphatase 55 U/L (39-117); Anion Gap 12 (12-20); Aspartate Amino Transferase 14 U/L (5-31); Bilirubin Direct < 0.2 mg/dL (0.0-0.5); Bilirubin Total 0.2 mg/dL (0.0-1.0); Blood Urea Nitrogen 11 mg/dL (9-16); Calcium 9.6 mg/dL (8.4-10.2); Carbon Dioxide 24 mmol/L (22-29); Chloride 109 mmol/L (96-108); Creatinine Clr Calc Pharmacy 126.6; Estimated Glomerular Filt Rate > 60; Glucose Random 92 mg/dL (60-115); Lipase 21 U/L (8-78); Potassium 3.7 mmol/L (3.3-5.1); Sodium 141 mmol/L (135-145); Total Protein 7.7 g/dL (6.5-8.0)
[2023-01-04 00:59] VITALS: BP 111/48; PULSE 53; RESP 16; TEMP 36.6; O2SAT 99
== END 2023-01-04 01:18 | disposition home or self-care (01) ==
PROVIDERS: Nurse Practitioner Family; Emergency Provider Emergency Medicine; PCP Registered Nurse
DX: R10.2 Pelvic and perineal pain (principal); N88.8 Other specified noninflammatory disorders of cervix uteri
CPT/HCPCS: 36415; 76830; 76856; 80048; 80076; 81003; 81025; 83690; 85025; 99284

== ENCOUNTER 2023-03-22 10:17 | Emergency (ER) | payer MEDICAID, SELFPAY ==
[2023-03-22 11:06] VITALS: BP 111/67; PULSE 105; RESP 19; TEMP 37.7; O2SAT 99; BMI 29.3
[2023-03-22 11:41] LABS: IDNOW Serial# 08D9AD1C; Strep A Nucleic Acid Negative (Negative)
[2023-03-22 12:52] LABS: Influenza A PCR POSITIVE (Negative); Influenza B PCR NEGATIVE (Negative); Resp Syncy Virus RNA Qual PCR NEGATIVE (Negative); SARS COV2 PCR INHOUSE NEGATIVE (Negative)
--- NOTE | 2023-03-22 13:23 | ED_ITS ---
HPI - URI/Sore Throat General Chief Complaint: Upper Respiratory Symptoms Stated Complaint: Chest pain, cough, headache Time Seen by Provider: 03/22/23 13:27 Source: patient, RN notes reviewed and old records reviewed Mode of arrival: ambulatory History of Present Illness [facility] Narrative: 22-year-old female with no significant past medical history presenting to the ED complaining of body aches, congestion, dry cough, headache, sore throat, chest discomfort with cough x 3 days. Admits son sick with similar symptoms. Denies fever, chills, travel, SOB MD elicited complaint: cough, sore throat, rhinorrhea and nasal congestion Related Data Previous Rx's Medication Instructions Recorded cefuroxime axetil 250 mg tablet 250 mg PO BID Upper respiratory 11/06/21 infection/UTI 7 days #14 tabs Allergies Allergy/AdvReac Type Severity Reaction Status Date / Time amoxicillin [AMOXICILLIN] Allergy Unknown RASH Verified 03/22/23 11:05 vancomycin [VANCOMYCIN] Allergy Unknown HIVES, Verified 03/22/23 11:05 itchy and swollen Review of Systems Review of Systems: Constitutional: No Fever, No Chills ENT/Mouth: No Ear Pain, + Nasal Congestion, No Sinus Pain, No Hoarseness, + sore throat, +Rhinorrhea, No Swallowing Difficulty Cardiovascular: + Chest Pain w/cough, No SOB Respiratory: + Cough, No Sputum, No Wheezing Gastrointestinal: No Nausea, No Vomiting, No Diarrhea, No Constipation, No Abdominal pain Musculoskeletal: No joint pain, +Myalgias, No Joint Swelling Skin: No Skin Lesions, No rash Neuro: No Weakness, +HICKS Yes all other systems are reviewed and are negative Constitutional: Constitutional: Reports as per [facility] Past Medical History Attestation statement: The following information was validated with the patient. Source: old records reviewed Onset Date is defined in the Problem List Problems that require an onset date and time if occurred within 24 hrs of arrival to the ED Aortic Dissection and Rupture; Neurologic impairment; Cardiopulmonary Arrest; Endotracheal Intubation; Insertion or Replacement of Mechanical Circulatory Assist Device Social History Social History Advance Directives: No Advance Directives Information Provided: No Physical Exam Vital Signs: Vital Signs: Last Vital Signs Temp 99.8 F 03/22/23 11:06 Pulse 105 H 03/22/23 11:06 Resp 19 03/22/23 11:06 BP 111/67 03/22/23 11:06 Pulse Ox 99 03/22/23 11:06 O2 Del Method Room Air 03/22/23 11:06 BMI result Body Mass Index 29.3 Const: General: cooperative, healthy appearing and no acute distress Orientation/consciousness: patient oriented x3 Limitations: no limitations HEENT: Head: Yes normal to inspection and Yes atraumatic Ears: hearing grossly normal bilaterally, external ears normal and mastoids normal General nose exam: Normal external nose present Face and sinus: Yes normal facial exam Mouth: Normal oral and palatal mucosa present and no drooling Throat: Yes posterior oropharynx normal, Yes tonsils normal, Yes uvula midline, No peritonsillar mass and No uvular edema Eyes: General: appearance normal, both eyes and all related structures EOM: EOMs intact bilaterally Neck: Neck: Yes normal visual inspection and Yes no meningeal signs Resp: Effort & Inspection: normal respiratory effort and no respiratory distress Auscultation: clear to auscultation bilaterally, no crackles, no rales, no rhonchi and no wheezes Cardio: Rate: regular rate Heart sounds: S1 normal heart sound present and S2 normal heart sound present Skin: Rashes: no rashes Wounds: no wounds Neuro: General: patient oriented x3, tone normal and no meningeal signs Cranial nerves: Yes CN's II-XII intact bilaterally Gait exam (Neuro): Normal gait present Extrem: General: Yes normal to inspection Course Course Course Narrative: -influenza a positive Results discussed with patient including worrisome signs and symptoms and strict return precautions, and when to return to the emergency department. They verbalized understanding and feel safe for discharge at this time. Medical Decision Making Medical Decision Making MDM Narrative: 22-year-old female with no significant past medical history presenting to the ED complaining of body aches, congestion, dry cough, headache, sore throat, chest discomfort with cough x 3 days. On exam low-grade temp 99.8 degrees, tachycardic likely from fever, lungs CTA, or pharynx WNL, nontoxic appearing. Concern for viral illness. Lower suspicion for pneumonia, ACS/PE. No evidence of DIFFUSION OPERATOR/retropharyngeal abscess Plan: Viral testing, rapid strep Please refer to course for remaining clinical decision making, interpretation of labs/imaging results, and discussions with consultants and/or family members. Differential Diagnosis Differential Diagnoses: The differential diagnosis associated with the presentation includes As above Lab Data MDM Lab Attestation statement: I reviewed the patient's lab results. Labs: Lab Results 03/22/23 Range/Units 11:22 Influenza Type A (PCR) POSITIVE A (Negative) Influenza Type B (PCR) NEGATIVE (Negative) RSV RNA Qual (PCR) NEGATIVE (Negative) SARS-CoV-2 RNA (RT-PCR) NEGATIVE (Negative) S. pyogenes GrpA HOMA Negative (Negative) External Record Review External record reviewed: Inpatient record, Office record, Outpatient record, Prior outpatient labs, Prior outpatient radiology, Primary care record and Outside ED record Tests considered The following testing was considered but not selected: As above Prescription Management I considered prescription management with: Pain Medication, Antiviral and Antibiotic Discharge Plan Discharge Clinical Impression: Influenza Patient Disposition: Home, Self-Care Instructions: Influenza (DC) Additional Instructions: You have the flu No antibiotics are indicated at this time Make sure you are staying hydrated. Drink plenty of fluids. Rest Alternate Tylenol and Motrin at home as needed for body aches and fever Follow-up with your doctor. If symptoms persist or worsen return to the emergency department *If you are a child & not tolerating liquid or urinating for more than 6 hours, or fevers are uncontrolled with medications at home, return to the emergency department* Prescriptions: No Action cefuroxime axetil 250 mg tablet 250 mg PO BID 7 Days Qty: 14 0RF Referrals: Belkis Malin FNP [Primary Care Provider] - 5 days Stand Alone Forms: Work/School Release
== END 2023-03-22 13:33 | disposition home or self-care (01) ==
PROVIDERS: Emergency Provider Emergency Medicine; PCP Registered Nurse
DX: J10.1 Influenza due to other identified influenza virus with other respiratory manifestations (principal); R50.9 Fever, unspecified; R00.0 Tachycardia, unspecified; Z11.52 Encounter for screening for COVID-19
CPT/HCPCS: 0241U; 87651; 99282; 99283

== ENCOUNTER 2023-04-03 12:13 | Outpatient (REF) | payer MEDICAID, SELFPAY ==
[2023-04-03 13:21] LABS: MANUAL DIFF FLAG NO
[2023-04-03 13:24] LABS: Basophils Percent Auto 0.4 % (0-2); Eosinophils Percent Auto 0.4 % (0-4); Hematocrit 35.6 % (37.0-47.0); Hemoglobin 11.3 g/dl (12.0-16.0); Imm Gran Abs Auto 0.02 X10*3/uL (0.00-0.03); Imm Gran Pct Auto 0.3 % (0.0-0.4); Lymphocytes Absolute Auto 1.7 X10*3/uL (1.2-4.9); Lymphocytes Percent Auto 24.9 % (20-40); Mean Corpuscular HGB Conc 31.7 g/dl (31.0-35.0); Mean Corpuscular Hemoglobin 26.6 pg (27.0-33.0); Mean Corpuscular Volume 83.8 fL (80.0-98.0); Mean Platelet Volume 9.4 fL (9.4-12.3); Monocytes Absolute Auto 0.7 X10*3/uL (0.1-1.2); Monocytes Percent Auto 9.7 % (2-11); Neutrophils Absolute Auto 4.4 x10*3/uL (2.0-8.3); Neutrophils Percent Auto 64.3 % (45-73); Platelet Count 521 X10*3/uL (160-400); Red Blood Count 4.25 X10*6/uL (4.20-5.50); Red Cell Distribution Width 14.1 % (11.0-16.0); White Blood Count 6.8 X10*3/uL (4.8-10.8)
[2023-04-03 14:37] LABS: Erythrocyte Sedimentation Rate 38 MM/HR (0-20)
[2023-04-03 16:37] LABS: Alanine Aminotransferase 41 U/L (0-31); Albumin Level 3.6 g/dL (3.5-5.0); Alkaline Phosphatase 62 U/L (39-117); Anion Gap 11 (12-20); Aspartate Amino Transferase 20 U/L (5-31); Bilirubin Total 0.1 mg/dL (0.0-1.0); Blood Urea Nitrogen 8 mg/dL (9-16); C Reactive Protein 0.29 mg/dL (< or = 0.50); Calcium 8.9 mg/dL (8.4-10.2); Carbon Dioxide 26 mmol/L (22-29); Chloride 107 mmol/L (96-108); Estimated Glomerular Filt Rate > 60; Glucose Random 87 mg/dL (60-115); Potassium 4.4 mmol/L (3.3-5.1); Sodium 140 mmol/L (135-145); Total Protein 7.4 g/dL (6.5-8.0)
== END 2023-04-03 12:14 | disposition home or self-care (01) ==
LOC: HO.HHCL 12:13
PROVIDERS: Visit Provider Registered Nurse
DX: R10.13 Epigastric pain (principal)
CPT/HCPCS: 36415; 80053; 85025; 85652; 86140

== ENCOUNTER 2023-04-14 09:22 | Outpatient (REF) | payer MEDICAID, SELFPAY ==
--- NOTE | ~2023-04-14 | US_ITS ---
EXAMINATION: US ABDOMEN COMPLETE CLINICAL INFORMATION: 22-year-old female with persistent epigastric pain. COMPARISON: CT abdomen and pelvis 11/06/2021. Ultrasound abdomen complete 03/08/2019 and 02/10/2015. TECHNIQUE: Real-time imaging of the abdominal viscera. FINDINGS: PANCREAS: Normal. ABDOMINAL AORTA: The proximal, mid, and distal segments are normal in caliber. INFERIOR VENA CAVA: Visualized portions are normal. LIVER: Normal. The liver is normal in size. The liver contour is normal. Parenchymal echogenicity is normal. No focal hepatic lesion. There is no intrahepatic biliary duct dilatation seen. GALLBLADDER: Surgically absent. COMMON BILE DUCT: Normal in caliber measuring 0.5 cm in diameter. RIGHT KIDNEY: Normal. No hydronephrosis. No renal calculi or focal parenchymal lesions. The kidney measures 10.2 cm in maximum dimension. LEFT KIDNEY: Normal. No hydronephrosis. No renal calculi or focal parenchymal lesions. The kidney measures 10.2 cm in maximum dimension. SPLEEN: Normal. The spleen measures 9.9 cm in maximum dimension. FREE FLUID: None. US/US abdomen complete IMPRESSION: Cholecystectomy. Otherwise normal abdominal ultrasound.
== END 2023-04-14 09:23 | disposition home or self-care (01) ==
LOC: HO.US 09:22
PROVIDERS: PCP Registered Nurse; Visit Provider Registered Nurse
DX: R10.13 Epigastric pain (principal)
CPT/HCPCS: 76700

== ENCOUNTER 2023-04-15 09:28 | Outpatient (REF) | payer MEDICAID, SELFPAY ==
[2023-04-15 09:41] LABS: MANUAL DIFF FLAG NO
[2023-04-15 10:12] LABS: Basophils Percent Auto 0.3 % (0-2); Eosinophils Percent Auto 0.3 % (0-4); Hematocrit 34.7 % (37.0-47.0); Hemoglobin 11.3 g/dl (12.0-16.0); Imm Gran Abs Auto 0.01 X10*3/uL (0.00-0.03); Imm Gran Pct Auto 0.2 % (0.0-0.4); Lymphocytes Absolute Auto 2.1 X10*3/uL (1.2-4.9); Lymphocytes Percent Auto 33.1 % (20-40); Mean Corpuscular HGB Conc 32.6 g/dl (31.0-35.0); Mean Corpuscular Hemoglobin 27.8 pg (27.0-33.0); Mean Corpuscular Volume 85.3 fL (80.0-98.0); Mean Platelet Volume 9.6 fL (9.4-12.3); Monocytes Absolute Auto 0.6 X10*3/uL (0.1-1.2); Monocytes Percent Auto 8.9 % (2-11); Neutrophils Absolute Auto 3.7 x10*3/uL (2.0-8.3); Neutrophils Percent Auto 57.2 % (45-73); Platelet Count 354 X10*3/uL (160-400); Red Blood Count 4.07 X10*6/uL (4.20-5.50); Red Cell Distribution Width 15.1 % (11.0-16.0); White Blood Count 6.4 X10*3/uL (4.8-10.8)
[2023-04-15 10:48] LABS: Alanine Aminotransferase 14 U/L (0-31); Albumin Level 3.7 g/dL (3.5-5.0); Alkaline Phosphatase 48 U/L (39-117); Aspartate Amino Transferase 14 U/L (5-31); Bilirubin Direct < 0.2 mg/dL (0.0-0.5); Bilirubin Total 0.1 mg/dL (0.0-1.0); Total Protein 7.4 g/dL (6.5-8.0)
[2023-04-15 11:01] LABS: Hepatitis A Antibody IgM 0.27 Index (0-0.79); ~Hepatitis A Antibody IgM Nonreactive (Nonreactive)
[2023-04-15 11:05] LABS: Ferritin 7 ng/mL (10-122)
[2023-04-15 11:25] LABS: HBS Num1 98.47 mIU/mL (0-7.99); HBc Num1 0.06 S/CO (0.00-0.79); HBsAGNum1 0.91 S/CO (0.00-0.99); Hepatitis B Core Antibody Nonreactive (Nonreactive); Hepatitis B Surface Antigen Negative (Negative); ~HepC Num1 0.06 S/CO (0.00-0.79); ~Hepatitis B Surface Antibody REACTIVE (Nonreactive); ~Hepatitis C Antibody Nonreactive (Nonreactive)
== END 2023-04-15 09:29 | disposition home or self-care (01) ==
LOC: HO.LAB 09:28
PROVIDERS: PCP Registered Nurse; Visit Provider Registered Nurse
DX: D50.9 Iron deficiency anemia, unspecified (principal); R74.8 Abnormal levels of other serum enzymes
CPT/HCPCS: 36415; 80076; 82728; 85025; 86704; 86706; 86709; 86803; 87340

== ENCOUNTER 2023-11-07 09:30 | Emergency (ER) | payer MEDICAID, SELFPAY ==
[2023-11-07 09:36] VITALS: BP 133/68; PULSE 88; RESP 18; TEMP 36.8; O2SAT 98; BMI 29.7
--- NOTE | 2023-11-07 10:11 | ED_ITS ---
HPI - URI/Sore Throat General Chief Complaint: Upper Respiratory Symptoms Stated Complaint: Sore throat, congestion Time Seen by Provider: 11/07/23 10:04 Source: patient Mode of arrival: ambulatory Limitations: no limitations History of Present Illness ED Provider: Daniel Fuchs PA-C HPI Narrative: 23-year-old female presents to the ER for evaluation of sore throat and nasal congestion that started yesterday. Patient's sister tested positive for COVID yesterday. Patient also took a COVID test was positive. Today she reports some chills and slight cough. She is able to tolerate p.o. normally. No fevers. No abdominal pain, nausea, vomiting, diarrhea. No chest pain or difficulty breathing. She presents to the ER for verification of her COVID diagnosis MD elicited complaint: cough, sore throat and nasal congestion Onset (ago): day(s) Consistency: intermittent Severity: moderate Description of mucous: clear Able to tolerate fluids by mouth: Yes Exacerbating factors: swallowing Relieving factors: nothing Context: sick contacts Associated symptoms: chills, nasal congestion and sore throat Treatments prior to arrival: none Related Data Previous Rx's ?Medication ?Instructions ?Recorded cefuroxime axetil 250 mg tablet 250 mg PO BID Upper respiratory 11/06/21 infection/UTI 7 days #14 tabs Allergies Allergy/AdvReac Type Severity Reaction Status Date / Time amoxicillin [AMOXICILLIN] Allergy Unknown RASH Verified 11/07/23 09:37 vancomycin [VANCOMYCIN] Allergy Unknown HIVES, Verified 11/07/23 09:37 itchy and swollen Review of Systems Review of Systems: Yes all other systems are reviewed and are negative [facility] Social History Social History Advance Directives: No Do you have a plan to hurt others: No Plan Physical Exam Vital Signs: Vital Signs: Last Vital Signs Temp 0 F L 11/07/23 11:15 Pulse 81 11/07/23 11:15 Resp 16 11/07/23 11:15 BP 102/65 11/07/23 11:15 Pulse Ox 98 11/07/23 11:15 O2 Del Method Room Air 11/07/23 11:15 BMI result Body Mass Index 29.7 Appearance: Alert. Oriented X3. No acute distress. Head: normocephalic, atraumatic. Eyes: Pupils equal, round and reactive to light. ENT: Pharynx normal. No tonsillar swelling or exudate. Neck: Normal inspection. Neck supple. CVS: Normal heart rate and rhythm. Pulses normal. Respiratory: No respiratory distress. Breath sounds normal. Abdomen: Soft and nontender. +BS x4 Skin: Skin warm and dry. Normal skin color. Normal skin turgor. No rashes. Extremities: No lower extremity edema. No joint swelling. Neuro/psych: Oriented X 3. Grossly normal, nonfocal. Normal speech and cognition. Medical Decision Making Medical Decision Making [facility] Narrative: 23-year-old female with no medical problems presents to the ER for evaluation of her sore throat, cough, chills, nasal congestion that started yesterday. She tested positive for COVID with a home test yesterday. Vital signs are stable here. She is oxygenating well. On examination she has clear lungs. She is nontoxic appearing. Patient has positive for COVID here. We discussed diagnosis symptomatic care. Stable for discharge home. Work note provided Differential Diagnosis Differential Diagnoses: The differential diagnosis associated with the presentation includes strep, covid, flu, rsv, other viral syndrome, bronchitis, pneumonia, no evidence of peritonsillar abcsess or retropharyngeal abscess Lab Data [facility] Lab Attestation statement: I reviewed the patient's lab results. Positive COVID Labs: Lab Results 11/07/23 Range/Units 09:51 Influenza Type A (PCR) NEGATIVE (Negative) Influenza Type B (PCR) NEGATIVE (Negative) RSV RNA Qual (PCR) NEGATIVE (Negative) SARS-CoV-2 RNA (RT-PCR) POSITIVE A (Negative) S. pyogenes GrpA HOMA Negative (Negative) Independent Historian Clinical information obtained from an independent historian. History obtained fr om or confirmed by: Other (Adult sister at the bedside) External Record Review External record reviewed: Outpatient record and Prior outpatient labs Prescription Management I considered prescription management with: Antiviral No risk factors to warrant Paxlovid Critical Care Time Critical Care Time Critical Care Time: No Discharge Plan Discharge Clinical Impression: COVID-19 Patient Disposition: Home, Self-Care Instructions: COVID-19 (Coronavirus Disease 2019) (ED) Additional Instructions: You may return to work today, as her symptoms are improving and you have been sick for more than a week. Just wear a mask whenever you were in public. Take [id number] cough syrup or cold and flu medications as needed for your symptoms. Follow-up with your doctor as needed Prescriptions: No Action cefuroxime axetil 250 mg tablet 250 mg PO BID 7 Days Qty: 14 0RF Stand Alone Forms: Work/School Release Interventions: ED Discharge Assessment Last Done: 11/07/23 11:15 Discharge Date/Time: 11/07/23 11:15 Print Language: Chinese
[2023-11-07 10:31] LABS: IDNOW Serial# 08D9AD1C; Strep A Nucleic Acid Negative (Negative)
[2023-11-07 10:48] VITALS: BP 102/65; PULSE 81; RESP 16; O2SAT 98
[2023-11-07 10:50] LABS: Influenza A PCR NEGATIVE (Negative); Influenza B PCR NEGATIVE (Negative); Resp Syncy Virus RNA Qual PCR NEGATIVE (Negative); SARS COV2 PCR INHOUSE POSITIVE (Negative)
[2023-11-07 11:15] VITALS: BP 102/65; PULSE 81; RESP 16; TEMP -17.7; TEMP 0; O2SAT 98
== END 2023-11-07 11:15 | disposition home or self-care (01) ==
PROVIDERS: Emergency Provider Emergency Medicine Emergency Medical Services; PCP Registered Nurse
DX: U07.1 COVID-19 (principal); J02.9 Acute pharyngitis, unspecified; R05.9 Cough, unspecified; R09.81 Nasal congestion
CPT/HCPCS: 0241U; 87651; 99283

== ENCOUNTER 2024-07-05 10:55 | Outpatient (REF) | payer MEDICAID, SELFPAY ==
--- OUTSIDE RECORDS SUMMARY | 2024-07-05 11:42 | XMS_ITS | Encounter Summary ---
Author Organization [employer] Address [address] [facility] 7 [place] [address] Care Team Providers Care Technical Rep Name Role Phone [facility] Primary Care Provider Reason for Visit * Reason Onset Date Comments Chart Prep 07/03/2024 Encounter Details Date Type Department Care Team ([facility] st Contact Info) Description 07/03/2024 Telephone [facility] [address] [place] [address] [facility] [address] [place], [place] [phone] Chart Prep Social History Tobacco Use Types Packs/Day Years Used Date Smoking Tobacco: Never Passive Smoke Exposure: Never Smokeless Tobacco: Never Alcohol Use Standard Drinks/Week Comments Never 0 (1 standard drink = 0.6 oz pur e alcohol) Depression Answer Date Recorded Patient Health Questionnaire-9 Score 0 04/03/2023 Patient Health Questionnaire-9 Score 0 04/03/2023 Last PHQ-9: Questionnaire Data Not on file 0 04/03/2023 Housing Stability Answer Date Recorded What is your housing situation today? I have marcelino torres 06/27/[address] you li ve. Do you have problems with any of the following? None of the above 06/27/2024 Food Insecurity Answer Date Recorded Within the past 12 months, y ou worried that your food would run out before you got money to buy more: Never True 06/27/2024 Within the past 12 months,th e food you bought just didn't last and you didn't have enough money to get more: Never True Transportation Answer Date Recorded In the past 12 months, has l ack of transportation kept you from medical appts, meetings, work or from getting things needed for daily living? No 06/27/2024 Utilities Answer Date Recorded In the past 12 months, has t he electric, gas, oil or water company threatened to shut off services in your home? No 06/27/2024 Depression Answer Date Recorded Patient Health Questionnaire-2 Score 0 04/03/2023 Internet Access Answer Date Recorded Internet Access Q1 Yes 06/27/2024 Internet Access Q2 Not on file 06/27/2024 Comments No Sex and Gender Information Value Date Recorded Sex Assigned at Female 01/10/2022 10:18 AM EDT Legal Sex Female 10:18 AM EDT Gender Identity Female 01/10/2022 10:18 AM EDT Sexual Orientation Straight 01/10/2022 10 :18 AM EDT documented as of this encounter Miscellaneous Notes * Telephone Encounter - Yvette Baig MA - 07/03/2024 9:49 AM EDT Chart Prep Labs: not applicable Images: not applicable Referrals: complete Vaccines due: yes Screenings: pap smear soon Overdue care gaps: SBIRT, PHQ-9, Disability screen, and Tobacco documented in this encounter Plan of Treatment Not on file documented as of this encounter Visit Diagnoses Not on filedocumented in this encounter Additional Health Concerns Assessment Noted Time PHQ-9 Depression Total Score: 0 04/03/19 24 11:22 AM EST documented as of this encounter Care Teams Technical Rep Relationship Specialty Start Date End Date Belkis Malin FNP [address] [place] [address] PCP - General Family Medicine 11/09/21 documented as of this encounter
--- OUTSIDE RECORDS SUMMARY | 2024-07-05 11:42 | XMS_ITS | Encounter Summary ---
Author Organization [employer] Address 75 [facility] 7t [place] [address] Care Team Providers Care Professional Driver Name Role Phone Belkis Malin CCNP Primary Care Provider [phone] Encounter Details Date Type Department Care Team (Latest Contact Info) Description 07/05/2024 Travel Social History Tobacco Use Types Packs/Day Years Used Date Smoking Tobacco: Never Passive Smoke Exposure: Never Smokeless Tobacco: Never Alcohol Use Standard Drinks/Week Comments Never 0 (1 standard drink = 0.6 oz pur e alcohol) Depression Answer Date Recorded Patient Health Questionnaire-9 Score 0 07/05/2024 Patient Health Questionnaire-9 Score 0 07/05/2024 Last PHQ-9: Questionnaire Data Not on file 0 07/05/2024 Housing Stability Answer Date Recorded What is [...] Date Recorded Patient Health Questionnaire-2 Score 0 07/05/2024 Internet Access Answer Date Recorded Internet Access Q1 Yes 06/27/2024 Internet Access Q2 Not on file 06/27/2024 Comments No Sex and Gender Information Value Date Recorded Sex Assigned at Female 01/10/2022 10:18 AM EDT Legal Sex Female 10:18 AM EDT Gender Identity Female 01/10/2022 10:18 AM EDT Sexual Orientation Straight 01/10/2022 10 :18 AM EDT documented as of this encounter Plan of Treatment Not on file documented as of this encounter Visit Diagnoses Not on filedocumented in this encounter Additional Health Concerns Assessment Noted Time PHQ-9 Depression Total Score: 0 07/06/19 25 9:37 AM EDT documented as of this encounter Care Teams Professional Driver Relationship Specialty Start Date End Date Belkis Malin FNP [address] [place] [address] PCP - General Family Medicine 11/09/21 documented as of this encounter
--- OUTSIDE RECORDS SUMMARY | 2024-07-05 11:42 | XMS_ITS | Encounter Summary ---
Author Organization [employer] Address 75 [facility] 7 [place] [address] Care Team Providers Care Dental Hygiene Instructor Name Role Phone [place] [facility] Primary Care Provider [phone] Reason for Visit * Reason Comments Annual Exam Encounter Details Date Type Department Care Team (Latest Contact Info) Description 07/05/2024 9:30 AM EDT Office Visit [facility] [address] [place] [address] [facility] [address] [place], [place] [phone] Routine screening for STI (sexually transmitted infection) (Primary Dx); Encounter for initial prescription of transdermal patch hormonal contraceptive device; Iron deficiency anemia due to chronic blood loss; Left non-suppurative otitis media; Encounter for immunization Social History Tobacco Use Types Packs/Day Years [...] AM EDT documented as of this encounter Last Filed Vital Signs Vital Sign Reading Time Taken Comments Blood Pressure 104/57 07/05/2024 9:30 AM EDT Pulse 65 07/05/2024 9:30 AM EDT Temperature 36.2 ??C (97.2 ??F) 07/05/2024 9:30 AM ED T Respiratory Rate 18 07/05/2024 9:30 AM EDT Oxygen Saturation 99% 07/05/2024 9:30 AM EDT Inhaled Oxygen Concentration - - Weight 73.8 kg (162 lb 12.8 oz) 07/05/2024 9:30 AM EDT Height 157.5 cm (5' 2 ) 07/05/2024 9:30 AM EDT Body Mass Index 29.78 07/05/2024 9:30 AM EDT documented in this encounter Plan of Treatment Scheduled Orders Name Type Priority Associated Diagnoses Orde r Schedule Syphilis Screen Lab Routine Routine screening for STI (sexually transmitted infection) Expected: 07/05/2024, Expires: 07/05/2025 HIV-1/2 Antigen and Antibodies, Fourth Generation, with Reflexes Lab Routine Routine screening for STI (sexually transmitted infection) Expected: 07/05/2024 (Approximate), Expires: 07/05/2025 Chlamydia/N. Gonorrhoeae RNA, TMA, Urogenitial Microbiology Routine Routine screening for STI (sexually transmitted infection) Ordered: 07/05/2024 CBC auto differential Lab Routine Iron deficiency anemia due to chronic blood loss Expected: 07/05/2024 (Approximate), Expires: 07/05/2025 Ferritin Lab Routine Iron deficiency anemia due to chronic blood loss Expected: 07/05/2024 (Approximate), Expires: 07/05/2025 documented as of this encounter Procedures Procedure Name Priority Date/Time Associated Diagnosis Comments POCT , URINE Routine 07/05/2024 11:11 AM EDT Encounter for initial prescription of transdermal patch hormonal contraceptive device documented in this encounter Results * POCT Urine (07/05/2024 11:11 AM EDT) Preg Test, Ur Negative Negative, Indeterminate, None Detected, Invalid, Specimen unsatisfactory for evaluation, Weakly Positive QC Media Lot # ,[id number] Lot# Expiration Date Urine 07/05/2024 11:1 1 AM EDT [facility] POINT OF CARE TEST ENTER/EDIT ORDERABLES Final Result documented in this encounter Visit Diagnoses Diagnosis Routine screening for STI (sexually transmitted infection)- Primary Screening examination for venereal disease Encounter for initial prescription of transdermal patch hormonal contraceptive device Iron deficiency anemia due to chronic blood loss Iron deficiency anemia secondary to blood loss (chronic) Left non-suppurative otitis media Nonsuppurative otitis media, not specified as acute or chronic Encounter for immunization documented in this encounter Additional Health Concerns Assessment Noted Time PHQ-9 Depression Total Score: 0 07/06/19 9:37 AM EDT documented as of this encounter Care Teams Dental Hygiene Instructor Relationship Specialty Start Date End Date Belkis Malin FNP [address] [place] [id number] PCP - General Family Medicine 11/09/21 documented as of this encounter
--- OUTSIDE RECORDS SUMMARY | 2024-07-05 11:42 | XMS_ITS | Clinical Summary ---
Author Organization [employer] Address 75 [facility] 7t [place] [address] Care Team Providers Care Information Security Engineer Name Role Phone Belkis Malin OIL EXPELLER Primary Care Provider [phone] Allergies Active Allergy Reactions Criticality Noted Date Comments Amoxicillin Rash Low Vancomycin Shortness of breath High 12/15/2021 Medications albuterol 108 (90 Base) MCG/ACT inhaler 2 puffs by Inhalation route every 4-6 hours as needed 07/06/19 22 Active famotidine (Pepcid) 20 MG tabletIndication s:Dyspepsia TAKE 1 TABLET BY MOUTH TWICE A DAY 180 tablet 3 01/29/20 24 Active norelgestromin-e thinyl estradiol (Xulane) 150-35 MCG/24HRIndicati ons:Encounter for initial prescription of transdermal patch hormonal contraceptive device APPLY 1 PATCH WEEKLY FOR 3 WEEKS THEN REMOVE FOR 1 WEEK 9 patch 3 07/06/19 25 Active fluticasone (Flonase) 50 MCG/ACT nasal sprayIndications :Left non-suppurative otitis media Administer 1-2 sprays into each nostril Once per day. Shake gently. Before first use, prime pump. After use, clean tip and replace cap. 16 g 2 07/06/19 25 2025 Active norelgestromin-e thinyl estradiol (Xulane) 150-35 MCG/24HRIndicati ons:Encounter for initial prescription of transdermal patch hormonal contraceptive device APPLY 1 PATCH WEEKLY FOR 3 WEEKS THEN REMOVE FOR 1 WEEK 9 patch 3 12/27/19 24 2024 Discontinued(R eorder (will not trigger notification to Pharmacy)) Active Problems Problem Noted Date Diagnosed Date Asthma 12/17/2021 01/18/2023 Overview (01/29/2023): PRN albuterol Well controlled Iron deficiency anemia 12/17/2021 Encounters Date Type Department Care Team Description 07/05/2024 9:30 AM EDT Office Visit [address] [address] Belkis Malin FNP Routine screening for STI (sexually transmitted infection) (Primary Dx); Encounter for initial prescription of transdermal patch hormonal contraceptive device; Iron deficiency anemia due to chronic blood loss; Left non-suppurative otitis media; Encounter for immunization 07/05/2024 Travel 07/03/[address] [address] Belkis Malin FNP Chart Prep 07/03/[address] [address] Belkis Malin FNP Chart Prep 06/27/2024 Patient Outreach [address] [address] Belkis Malin FNP Pre-visit Planning (SDOH screening negative and tobacco screening negative) 05/24/2024 Population Health Risk Score [facility] [address] [place] [phone] Provider, Population Health Generic 04/30/[address] [address] Belkis Malin FNP chart prep 04/17/2024 Patient Outreach [address] [address] Belkis Malin FNP Pre-visit Planning ((Unable to reach for PVP screening, LVM)) from Last 3 Months Immunizations Name Administration Dates Next Due DTaP 08/25/2004, 2,01/01/2001,11/28,2000 HPV, Quadrivalent 11/19/2013,10/23/2012,10/18/19 12 Hep A, ped/adol, 2 dose 10/06/2010,09/10/2009 Hep B, Adolescent or Pediatric 01/01/2001,2000,2000 Hep B, adult 12/17/2021 Hib (HbOC) 01/23/2002, 2,2000,09/20 IPV 08/26/2004, 2,2000,09/20 Influenza injectable quadriv alent IIV4 with preservative 11/26/2014 Influenza injectable quadriv alent preservative free 01/18/2023,12/15/2021,04/01/2020,12/21,03/20/2018,04/28/2017,12/15/2015 Influenza, IIV3, injectable 11/19/2013,0 11/08/2010,01/14/2010,11/19,01/17/2008 Influenza, Split (incl. en fied surface antigen) 12/25/2012,12/27/2011 Influenza, live, intranasal 01/12/2007 MMR 07/02/2005,08/26/2004 Meningococcal MCV4P ACYW-135 04/28/2017,10/18/19 12 Moderna Covid-19 Vaccine 6+ Bivalent 09/15/2022 Pfizer Covid-19 Vaccine 12+ 07/05/2024 Pneumococcal Conjugate PCV 7 01/01/2001,11/23/19,2000 Tdap 12/07/2018,11/08/2010 Varicella 07/31/2007,07/02/2001 Family History Medical History Relation Name Comments Diabetes Father ADD / ADHD Sister Relation Name Status Comments Father Sister Social History Tobacco Use Types Packs/Day Years Used Date Smoking Tobacco: Never Passive Smoke Exposure: Never Smokeless Tobacco: Never Tobacco Cessation:Counseling Given: Not Answered Alcohol Use Standard Drinks/Week Comments Never 0 [...] Orientation Straight 01/10/2022 10 :18 AM EDT Last Filed Vital Signs Vital Sign Reading [...] Mass Index 29.78 07/05/2024 9:30 AM EDT Plan of Treatment Health Maintenance Due Date Last Done Comments Family Planning (PISQ) 07/02/2015 Pneumococcal Vaccine: Pediatrics (0 to 5 Years) and At-Risk Patients (6 to 49) Years) (1 of 2 - PCV) 07/02/2019 01/01/2001, 2000, 2000 Influenza Vaccine (#1) 2023 , 12/15/2021, 04/01/2020, Additional history exists Pap Smear 02/08/2025 02/08/2022 Alcohol/Substance Use Screening 07/05/2025 07/05/2024 Depression Screening 07/05/2025 07/05/2024, 07/06/19 SDOH Screening 07/05/2025 07/05/2024 Tobacco Screening 07/05/2025 07/05/2024 DTaP/Tdap/Td Vaccines (8 - Td or Tdap) 12/07/2028 12/07/2018, 11/08/2010, 08/25/2004, Additional history exists Zoster Vaccines (1 of 2) 2050 RSV Patients and Patients Aged 60 years or older (1 - 1-dose 75+ series) 07/02/2075 HIB Vaccines Completed 01/23/2002, 06/12, 2000, Additional history exists IPV Vaccines Completed 08/26/2004, 03/13, 2000, Additional history exists Hepatitis A Vaccines Completed 10/06/2010, 09/11/19 10 HPV Vaccines Completed 11/19/2013, 10/11, 10/18/2011 Meningococcal Vaccine Completed 04/28/2017, 012 HIV Screening Completed 12/15/2021, 01/04/2021 Hepatitis B Vaccines Completed 12/17/2021, 01/01/2001, 2000, Additional history exists Hepatitis C Screening Completed 04/15/2023 , 12/15/2021, 01/04/2021 COVID-19 Vaccine Completed 07/05/2024, 08/2022, 09/07/2020, Additional history exists RSV under 20 months Aged Out No longe r eligible based on patient's age to complete this topic Rotavirus Vaccines Aged Out No longer eligible based on patient's age to complete this topic Procedures Procedure Name Priority Date/Time Associated Diagnosis Comments POCT , URINE Routine 07/05/2024 11:11 AM EDT Encounter for initial prescription of transdermal patch hormonal contraceptive device HEPATITIS PANEL, GENERAL Routine 04/15/2023 9:38 AM EST Elevated liver enzymes THINPREP IMAGING SYSTEM PAP Routine 02/08/2022 10:58 AM EST HIV 1/2 ANTIGEN/ANTIBODY, FOURTH GENERATION W/RFL Routine 12/15/2021 3:29 PM EDT from Last 3 Months or Most Recently Relevant to Health Maintenance Results * POCT Urine (07/05/2024 11:11 AM EDT) Preg Test, Ur Negative Negative, Indeterminate, None Detected, Invalid, Specimen unsatisfactory for evaluation, Weakly Positive QC Media Lot # [id number] Lot# Expiration Date Urine 07/05/2024 11:1 1 AM EDT [facility] POINT OF CARE TEST ENTER/EDIT ORDERABLES Final Result * Hepatitis A,B,C Profile (04/15/2023 9:38 AM EST) Pathologist [facility] Hepatitis A IgM Nonreactive Nonreactive [facility] Comment:IgM antibodies to HICKS V not detected; does not exclude earlyacute or recovered HAV infection. ~Hepatitis B Surface Antibody REACTIVE Nonreactive [facility] Comment:REACTIVE: > 11.99 mI U/mL Hepatitis B Core Antibody Nonreactive Nonreactive [facility] Hepatitis C Antibody Nonreactive Nonreactive [facility] Comment:Antibodies to HCV no t detected; does not exclude early acuteHCV infection. Hepatitis B Surface Ag Negative Negative [facility] Blood Venous blood specimen / Unknown 04/15/2023 9:38 AM EST 04/15/2023 9:38 AM EST [facility] LAB BLOOD ORDERABLES Final Re sult [facility] [address] [place] [phone] * Thinprep TIS PAP (02/08/2022 10:58 AM EST) Clinical Information: None given [employer] [facility] LMP: NONE GIVEN [employer] Prev. PAP: NONE GIVEN [employer] Prev. BX: NONE GIVEN [employer] SOURCE: None given [employer] Statement Of Adequacy: [employer] [facility] Comment: Satisfactory for evaluation. Endocervical/transformation zone component absent. Age and/or menstrual status not provided Interpretation/ Result: Negative for intraepithelial lesion or malignancy. [employer] [facility] COMMENT: This Pap test has been evaluated with computer assisted technology. [employer] [facility] Cytotechnologis t: [employer] [facility] Comment: SL, CT(ASCP) CT screening location: [address] ??[id number] PATHOLOGIST: [employer] [facility] Comment: Rick Kasper M.D. Direct , Board Certified in Anatomic and Clinical Pathology and Cytopathology (electronic signature) Consulting Pathologist [facility] [address] [place] [address] (Always Message) [employer] Comment: EXPLANATORY NOTE: The Pap is a screening test for cervical cancer. It is not a diagnostic test and is subject to false negative and false positive results. It is most reliable when a satisfactory sample, regularly obtained, is submitted with relevant clinical findings and history, and when the Pap result is evaluated along with historic and current clinical information. 02/08/2022 10:5 8 AM EST 02/09/2022 2:03 AM EST [facility] LAB PATHOLOGY ORDERABLES Maria C henao Result [address], [place] [phone] [employer] [address] [place] [address], [facility] [place] [phone] * HIV 1/2 ANTIGEN/ANTIBODY,FOURTH GENERATION W/RFL (12/15/2021 3:29 PM EDT) Pathologist [facility] HIV-1/2 ANTIGEN AND ANTIBODIES, 4TH GENERATION W/ REFLEX NON-REACT TRANG NON-REACT TRANG [facility] Comment: HIV-1 antigen and HIV-1/HIV-2 antibodies were not detected. There is no laboratory evidence of HIV infection. ?? PLEASE NOTE: This information has been disclosed to you from records whose confidentiality may be protected by state law. ??If your state requires such protection, then the state law prohibits you from making any further disclosure of the information without the specific written consent of the person to whom it pertains, or as otherwise permitted by law. A general authorization for the release of medical or other information is NOT sufficient for this purpose. ? For additional information please refer to [email or web address] (This link is being provided for informational/ educational purposes only.) ? The performance of this assay has not been clinically validated in patients less than 2 years old. ?? 12/15/2021 3:29 PM EDT [facility] LAB BLOOD ORDERABLES Final Re sult [facility] from Last 3 Months or Most Recently Relevant to Health Maintenance Insurance * Guarantor: Gia Saldana Account Type Relation to Patient Date of Phone Billing Address Personal/Family Self [address] [place] [address] [facility] [address] [place] [address] [place] [address] [place] [address] Care Teams Information Security Engineer Relationship Specialty Start Date End Date SpringvilleBelkis FNP [address] [place] [phone] PCP - General Family Medicine 11/09/21
--- OUTSIDE RECORDS SUMMARY | 2024-07-05 11:42 | XMS_ITS | Encounter Summary ---
Author Organization [employer] Address [address] [facility] 7 [place] [address] Care Team Providers Care Inside B2B Sales Name Role Phone [place] [facility] Primary Care Provider Reason for Visit * Reason Onset Date Comments Chart Prep 07/03/2024 Encounter Details Date Type Department Care Team ([facility] st Contact Info) Description 07/03/2024 Telephone [facility] [address] [place] [address] [employer] [address] [place], [place] [phone] Chart Prep Social History Tobacco Use Types [...] Encounter - Yvette Baig MA - 07/03/2024 9:52 AM EDT Chart Prep Labs: not applicable Images: not applicable Referrals: complete Vaccines due: not applicable Screenings: not applicable Overdue care gaps: SBIRT, JORDON-7, Disability screen, and Tobacco LMP documented in this encounter Plan of Treatment Not on file documented as of this encounter Visit Diagnoses Not on filedocumented in this encounter Additional Health Concerns Assessment Noted Time PHQ-9 Depression Total Score: 0 04/03/19 24 11:22 AM EST documented as of this encounter Care Teams Inside B2B Sales Relationship Specialty Start Date End Date Belkis Malin FNP [address] [place] [id number] PCP - General Family Medicine 11/09/21 documented as of this encounter
[2024-07-05 13:11] LABS: MANUAL DIFF FLAG NO
[2024-07-05 13:23] LABS: Basophils Percent Auto 0.5 % (0-2); Eosinophils Absolute Auto 0.1 X10*3/uL (0.0-0.4); Eosinophils Percent Auto 1.6 % (0-4); Hematocrit 34.9 % (37.0-47.0); Hemoglobin 11.3 g/dl (12.0-16.0); Imm Gran Abs Auto 0.01 X10*3/uL (0.00-0.03); Imm Gran Pct Auto 0.2 % (0.0-0.4); Lymphocytes Absolute Auto 1.2 X10*3/uL (1.2-4.9); Lymphocytes Percent Auto 19.5 % (20-40); Mean Corpuscular HGB Conc 32.4 g/dl (31.0-35.0); Mean Corpuscular Volume 86.4 fL (80.0-98.0); Mean Platelet Volume 9.3 fL (9.4-12.3); Monocytes Absolute Auto 0.5 X10*3/uL (0.1-1.2); Monocytes Percent Auto 7.7 % (2-11); Neutrophils Absolute Auto 4.5 x10*3/uL (2.0-8.3); Neutrophils Percent Auto 70.5 % (45-73); Platelet Count 447 X10*3/uL (160-400); Red Blood Count 4.04 X10*6/uL (4.20-5.50); Red Cell Distribution Width 13.2 % (11.0-16.0); White Blood Count 6.4 X10*3/uL (4.8-10.8)
[2024-07-05 13:52] LABS: Syphilis Screen Nonreactive (Nonreactive)
[2024-07-05 13:53] LABS: HIV AB/AG Nonreactive (Nonreactive); HIV Num 1 0.05 S/CO (0.00-0.99)
[2024-07-05 13:55] LABS: Ferritin 17 ng/mL (10-122)
[2024-07-06 05:25] LABS: CT PCR DETECTED (Not Detect.); NG PCR NOT DETECTED (Not Detect.)
== END 2024-07-05 10:56 | disposition home or self-care (01) ==
LOC: HO.HHCL 10:55
PROVIDERS: Visit Provider Registered Nurse
DX: D50.0 Iron deficiency anemia secondary to blood loss (chronic) (principal); Z11.3 Encounter for screening for infections with a predominantly sexual mode of transmission
CPT/HCPCS: 36415; 82728; 85025; 86780; 87389; 87491; 87591

== ENCOUNTER 2024-10-18 08:54 | Outpatient (REF) | payer MEDICAID, SELFPAY ==
--- OUTSIDE RECORDS SUMMARY | 2024-10-18 09:06 | XMS_ITS | Clinical Summary ---
Author Organization [employer] Address [address] [place] [address] [address] [place] [address] Care Team Providers Care Financial Advisor Name Role Phone Belkis Malin CASE OPERATOR Primary Care Provider [phone] Allergies Active Allergy Reactions Criticality Noted Date [...] MCG/ACT nasal sprayIndications :Left non-suppurative otitis media SPRAY 1 TO 2 SPRAYS INTO EACH NOSTRIL EVERY DAY. SHAKE GENTLY. BEFORE FIRST USE, PRIME PUMP. AFTER USE, CLEAN TIP AND REPLACE CAP. 48 mL 10/05/19 25 Active fluticasone (Flonase) 50 MCG/ACT nasal sprayIndications :Left non-suppurative otitis media Administer 1-2 sprays into each nostril Once per day. Shake gently. Before first use, prime pump. After use, clean tip and replace cap. 16 g 2 07/06/19 25 025 Discontinued Active Problems Problem Noted Date Diagnosed Date Asthma 12/17/2021 01/18/2023 Overview (01/29/2023): PRN albuterol Well controlled Iron deficiency anemia 12/17/2021 3 Encounters Date Type Department Care Team Description 10/08/2024 Telephone [facility] MEDICINE [address] [place] [address] Belkis Malin FNP requesting call back 10/04/2024 Refill [facility] MEDICINE [address] [place], [place] [phone] Belkis Malin FNP Left non-suppurative otitis media from Last 3 Months Immunizations Immunization Administration Dates Next Due DTaP 08/25/2004, 2,01/01/2001,11/28,2000 [...] 65 07/05/2024 9:30 AM EDT Temperature 36.2 C (97.2 F) 07/05/2024 9:30 AM EDT Respiratory Rate 18 07/05/2024 9:30 AM EDT [...] Years) and At-Risk Patients (6 to 49) Years (1 of 2 - PCV) 07/02/2019 01/01/2001, 2000, 2000 Influenza Vaccine (#1) 2024 , 12/15/2021, 04/01/2020, Additional history exists Pap Smear 02/08/2025 02/08/2022 Alcohol/Substance Use Screening 07/05/2025 07/05/2024 Depression Screening 07/05/2025 07/05/2024, 07/06/19 Disability Screening 07/05/2025 07/05/2024 SDOH Screening 07/05/2025 07/05/2024 Tobacco Screening 07/06/2025 07/06/2024 DTaP/Tdap/Td Vaccines (8 - Td or Tdap) [...] 10/11, 10/18/2011 Meningococcal Vaccine Completed 04/28/2017, 012 Hepatitis B Vaccines Completed 12/17/2021, 01/01/2001, 2000, Additional history exists Hepatitis C Screening Completed 04/15/2023 , 12/15/2021, 01/04/2021 COVID-19 Vaccine Completed 07/05/2024, 08/2022, 09/07/2020, Additional history exists HIV Screening Completed 07/05/2024, 07/2021, 01/04/2021 Meningococcal B Vaccine Aged Out No l onger eligible based on patient's age to complete this topic RSV under 20 months Aged Out No longe r eligible based on patient's age to complete this topic Rotavirus Vaccines Aged Out No longer eligible based on patient's age to complete this topic Procedures Procedure Name Priority Date/Time Associated Diagnosis Comments HIV 1/2 ANTIGEN/ANTIBODY, FOURTH GENERATION W/RFL Routine 07/05/2024 10:58 AM EDT Routine screening for STI (sexually transmitted infection) HEPATITIS PANEL, GENERAL Routine 04/15/2023 9:38 AM EST Elevated liver enzymes THINPREP IMAGING SYSTEM PAP Routine 02/08/2022 10:58 AM EST from Last 3 Months or Most Recently Relevant to Health Maintenance Results * HIV-1/2 Antigen and Antibodies, Fourth Generation, with Reflexes (07/05/2024 10:58 AM EDT) HIV AB/AG Nonreactive Nonreactive [facility] Comment:HIV-1 p24 Ag and/or HIV-1/HIV-2 Ab not detected.A test result that is nonreactive does not exclude thepossibility of exposure to or infection with HIV-1 and/orHIV-2. Nonreactive results in this assay for individualswith prior exposure to HIV-1 and/or HIV-2 may be due toantigen and antibody levels that are below the limit ofdetection of this assay.The [employer] HIV Ag/Ab Combo assay result andsupplemental assay results should be interpreted inconjunction with the patient's clinical presentation,history and other laboratory results. If the results areinconsistent with clinical evidence, additional testing issuggested to confirm the result. Blood Venous blood specimen / Unknown 07/05/2024 10:58 AM EDT 07/05/2024 1:06 PM EDT [facility] LAB BLOOD ORDERABLES Final Re sult Performing Organization Address City/[facility]/ZIP Co de Phone Number [facility] [address] [place] [phone] * Hepatitis A,B,C Profile (04/15/2023 9:38 AM EST) Hepatitis A IgM Nonreactive Nonreactive [facility] Comment:IgM antibodies to HICKS V not detected; does not exclude earlyacute or recovered HAV infection. ~Hepatitis B Surface Antibody REACTIVE Nonreactive [facility] Comment:REACTIVE: > 11.99 mI U/mL Hepatitis B Core Antibody Nonreactive Nonreactive [facility] Hepatitis C Antibody Nonreactive Nonreactive [facility] Comment:Antibodies to HCV no t detected; does not exclude early acuteHCV infection. Hepatitis B Surface Ag Negative Negative [facility] Blood Venous blood specimen / Unknown 04/15/2023 9:38 AM EST 04/15/2023 9:38 AM EST [facility] BLOOD ORDERABLES Final Re sult [facility] [address] [place] [phone] * Thinprep TIS PAP (02/08/2022 10:58 AM EST) Clinical Information: None given [facility] LMP: NONE GIVEN [facility] Prev. PAP: NONE GIVEN [facility] [employer] Prev. BX: NONE GIVEN [facility] [employer] SOURCE: None given [facility] [employer] Statement Of Adequacy: [facility] Comment: Satisfactory for evaluation. Endocervical/transformation zone component absent. Age and/or menstrual status not provided Interpretation/ Result: Negative for intraepithelial lesion or malignancy. [facility] COMMENT: This Pap test has been evaluated with computer assisted technology. [facility] Cytotechnologis t: [facility] [employer] Comment: SL, CT(ASCP) CT screening location: [address] [id number] PATHOLOGIST: [facility] Comment: Rick Kasper M.D. Direct , Board Certified in Anatomic and Clinical Pathology and Cytopathology (electronic signature) Consulting Pathologist [facility] [address] [place] [address] (Always Message) [facility] Comment: EXPLANATORY NOTE: The Pap is a [...] 8 AM EST 02/09/2022 2:03 AM EST [facility] PATHOLOGY ORDERABLES Maria C l Result [facility] [address] [place] [address] [facility] [address], [facility] [place] [address] from Last 3 Months or Most Recently Relevant to Health Maintenance Insurance [address] [place] [phone] [facility] [address] [place] [address] [place] [address] [address] [place] [address] Care Teams Financial Advisor Relationship Specialty Start Date End Date Belkis Malin FNP [address] [place] [phone] PCP - General Family Medicine 11/09/21
== END 2024-10-18 08:55 | disposition home or self-care (01) ==
LOC: HO.LAB 08:54
PROVIDERS: PCP Registered Nurse; Visit Provider Registered Nurse
DX: Z13.89 Encounter for screening for other disorder (principal)

== ENCOUNTER 2024-10-23 09:55 | Outpatient (REF) | payer MEDICAID, SELFPAY ==
--- OUTSIDE RECORDS SUMMARY | 2024-10-23 10:34 | XMS_ITS | Clinical Summary ---
Author Organization [employer] Address [address] [place] [address] [address] [place] [address] Care Team Providers Care Clinical Psychologist Name Role Phone Belkis Malin TENTER FRAME BACK TENDER Primary Care Provider Allergies Active Allergy Reactions Criticality Noted Date [...] Type Department Care Team Description 10/08/[address] [facility] MEDICINE [address] [place] [address] Belkis Malin FNP requesting call back 10/04/[address] [facility] MED[facility] [address] [place], [place] [phone] Belkis Malin FNP Left non-suppurative otitis media [...] 10:58 AM EDT) HIV AB/AG Nonreactive Nonreactive [facility] Comment:HIV-1 p24 Ag and/or HIV-1/HIV-2 Ab not detected.A test result that is nonreactive does not exclude thepossibility of exposure to or infection with HIV-1 and/orHIV-2. Nonreactive results in this assay for individualswith prior exposure to HIV-1 and/or HIV-2 may be due toantigen and antibody levels that are below the limit ofdetection of this assay.The [employer] HIV Ag/Ab Combo assay result andsupplemental assay results should be interpreted inconjunction with the patient's clinical presentation,history and other laboratory results. If the results areinconsistent with clinical evidence, additional testing issuggested to confirm the result. Blood Venous blood specimen / Unknown 07/05/2024 10:58 AM EDT 07/05/2024 1:06 PM EDT [facility] LAB BLOOD ORDERABLES Final Re sult Performing Organization Address City/[facility]/ZIP Co de Phone Number [facility] [address] [place] [phone] * Hepatitis A,B,C Profile (04/15/2023 9:38 AM EST) Hepatitis A IgM Nonreactive Nonreactive [facility] Comment:IgM antibodies to HICKS V not detected; does not exclude earlyacute or recovered HAV infection. ~Hepatitis B Surface Antibody REACTIVE Nonreactive [facility] Comment:REACTIVE: > 11.99 mI U/mL Hepatitis B Core Antibody Nonreactive Nonreactive [facility] Hepatitis C Antibody Nonreactive Nonreactive [facility] Comment:Antibodies to HCV no t detected; does not exclude early acuteHCV infection. Hepatitis B Surface Ag Negative Negative [facility] Blood Venous blood specimen / Unknown 04/15/2023 9:38 AM EST 04/15/2023 9:38 AM EST [facility] LAB BLOOD ORDERABLES Final Re sult [facility] [address] [place] [phone] * Thinprep TIS PAP (02/08/2022 10:58 AM EST) Clinical Information: None given [facility] LMP: NONE GIVEN [facility] Prev. PAP: NONE GIVEN [facility] [employer] Prev. BX: NONE GIVEN [facility] [employer] SOURCE: None given [facility] [employer] Statement Of Adequacy: [facility] [place] [employer] Comment: Satisfactory for evaluation. Endocervical/transformation zone component absent. Age and/or menstrual status not provided Interpretation/ Result: Negative for intraepithelial lesion or malignancy. [facility] [place] [facility] COMMENT: This Pap test has been evaluated with computer assisted technology. [facility] [place] [facility] Cytotechnologis t: [facility] [place] [employer] Comment: SL, CT(ASCP) CT screening location: [address] [address] PATHOLOGIST: [facility] [place] [facility] Comment: Rick Kasper M.D. Direct , Board Certified in Anatomic and Clinical Pathology and Cytopathology (electronic signature) Consulting Pathologist [facility] [address] [place] [address] (Always Message) [facility] [place] [employer] Comment: EXPLANATORY NOTE: The Pap is a [...] 8 AM EST 02/09/2022 2:03 AM EST [facility] LAB PATHOLOGY ORDERABLES Maria C l Result [facility] [address], [place] [address] [facility] [place] [employer] [address], [facility] [place] [place] [address] from Last 3 Months or Most Recently Relevant to Health Maintenance Insurance [address] [place] [phone] [facility] [address] [place] [address] [address] [place] [address] [address] [place] [address] Care Teams Clinical Psychologist Relationship Specialty Start Date End Date Belkis Malin FNP [address] [place] [phone] PCP - General Family Medicine 11/09/21
[2024-10-23 12:50] LABS: CT PCR Urine NOT DETECTED (Not Detect.); NG PCR Urine NOT DETECTED (Not Detect.)
== END 2024-10-23 09:56 | disposition home or self-care (01) ==
LOC: HO.HHCL 09:55
PROVIDERS: PCP Registered Nurse; Visit Provider Registered Nurse
DX: Z11.3 Encounter for screening for infections with a predominantly sexual mode of transmission (principal); A74.9 Chlamydial infection, unspecified
CPT/HCPCS: 87491; 87591

== ENCOUNTER 2024-12-18 13:33 | Emergency (ER) | payer MEDICAID, SELFPAY ==
--- NOTE | ~2024-12-18 | XR_ITS ---
EXAMINATION: XR CHEST CLINICAL INFORMATION: cough COMPARISON: None available. TECHNIQUE: 2 views of the chest were obtained. FINDINGS: The cardiac, hilar, and mediastinal contours are normal. The lungs are clear bilaterally. There is no pneumothorax or pleural effusion. There is no focal osseous or soft tissue abnormality. XR/XR chest 2V IMPRESSION: Normal chest. Electronically signed by: Ciro Lucero MD 12/18/2024 02:09 PM EDT RP
--- NOTE | 2024-12-18 13:35 | ED_ITS ---
HPI - General Adult General Chief complaint: Upper Respiratory Symptoms Stated complaint: CP from coughing/cold symptoms Related Data Previous Rx's ?Medication ?Instructions ?Recorded cefuroxime axetil 250 mg tablet 250 mg PO BID Upper re spiratory 11/06/21 infection/UTI 7 days #14 tabs Allergies Allergy/AdvReac Type Severity Reaction Status Date / Time amoxicillin (AMOXICILLIN) Allergy Unknown RASH Verified 12/18/24 13:39 vancomycin (VANCOMYCIN) Allergy Unknown HIVES, Verified 12/18/24 13:39 itchy and swollen PMFSH Social History Social History Advance Directives: No Advance Directives Information Provided: No Physical Exam ED Vital Signs: BMI result Body Mass Index 30.2 Course Course Course Narrative: This is a rapid medical exam performed by Veto Mcgill NP: Additional HPI, ROS, PE not included below will be deferred to primary provider. Patient is a 24y/o F presenting with complaint of 3-4 days of congestion, cough, chest discomfort with coughing, back pain, sweats, headaches. +sick contacts. Plan: viral swabs, cxr Patient left the emergency department before myself or any of the other cl inicians could review or explain physical exam findings, test results, need or lack there of for additional testing, treatment options, or a treatment plan. Medical Decision Making Lab Data Labs: Lab Results 12/18/24 Range/Units 13:42 COVID-19 (ROSARIO) Negative (Negative) COVID-19 Clin Com See Note Influenza Type A (HOMA) Negative (Negative) Influenza Type B (HOMA) Negative (Negative) Influenza A & B Note See Note Discharge Plan Discharge Clinical Impression: Cough Patient Disposition: Left W/O Completing Treatment Prescriptions: No Action cefuroxime axetil 250 mg tablet 250 mg PO BID 7 Days Qty: 14 0RF Discharge Date/Time: 12/18/24 19:59
[2024-12-18 13:36] VITALS: BP 110/57; PULSE 78; RESP 17; TEMP 36.4; O2SAT 97; BMI 30.2
[2024-12-18 14:08] LABS: COVID-19 Test Negative (Negative); IDNOW Serial# 55D5AD1C
[2024-12-18 14:18] LABS: IDNOW Serial# 58CA691E; Influenza B2 Negative (Negative)
[2024-12-18 17:55] VITALS: BP 103/58; PULSE 68; RESP 16; TEMP 36.3; O2SAT 96
--- NOTE | 2024-12-18 19:55 | PC.NURSE ---
called patient from waiting room and no answer. registration informed t/w that patient left.
--- NOTE | 2024-12-18 19:55 | PC.NURSE ---
Pt approached t/w in triage to state she was leaving, pt LWCT.
== END 2024-12-18 19:59 | disposition left against medical advice (07) ==
LOC: HO.ED 19:57
PROVIDERS: Registered Nurse Emergency; Emergency Provider Emergency Medicine; PCP Registered Nurse
DX: R05.9 Cough, unspecified (principal); Z88.0 Allergy status to penicillin; Z88.1 Allergy status to other antibiotic agents
CPT/HCPCS: 71046; 87502; 87635; 99282; 99283

== ENCOUNTER → 2024-12-18 13:37 | Outpatient (BNV) | payer MEDICAID, SELFPAY | PROVIDERS: PCP Registered Nurse; Visit Provider Radiology Diagnostic Radiology | DX: R05.9 Cough, unspecified (principal) | CPT/HCPCS: 71046 ==